=== PATIENT | male | born 1950 | race Caucasian/White ===

== ENCOUNTER → 2017-01-30 | Outpatient (REF) | payer MEDICARE ==
[2017-01-30 17:34] LABS: ALBUMIN 4.1 GM/DL (3.2-5.2); ALBUMIN/GLOBULIN RATIO 1.11 (1.00-1.93); ALKALINE PHOSPHATASE 80 U/L (45-117); ALT/SGPT 53 U/L (12-78); ANION GAP 7 MEQ/L (8-16); AST/SGOT 21 U/L (15-37); BILIRUBIN,TOTAL 0.8 MG/DL (0.2-1.0); BLOOD UREA NITROGEN 17 MG/DL (7-18); CALCIUM LEVEL 9.5 MG/DL (8.8-10.2); CARBON DIOXIDE LEVEL 31 MEQ/L (21-32); CHLORIDE LEVEL 103 MEQ/L (98-107); CHOLESTEROL LEVEL 130 MG/DL (<200); CREATININE FOR GFR 1.08 MG/DL (0.70-1.30); GLOMERULAR FILTRATION RATE > 60.0 (>49); GLUCOSE, FASTING 127 MG/DL (80-110); SODIUM LEVEL 141 MEQ/L (136-145); TOTAL PROTEIN 7.8 GM/DL (6.4-8.2); TRIGLYCERIDES LEVEL 110 MG/DL (<150)
== END ==
LOC: M SFHCCAPE 08:36
PROVIDERS: ATTEND Physician Assistant
DX: I10 Essential (primary) hypertension (principal); R73.01 Impaired fasting glucose; E78.5 Hyperlipidemia, unspecified

== ENCOUNTER → 2017-04-27 | Outpatient (REF) | payer MEDICARE ==
[2017-04-27 18:36] LABS: BASO % 0.4 % (0.0-1.0); EOS # 0.1 K/mm3 (0.0-0.50); LARGE UNSTAINED CELL # 0.1 K/mm3 (0.0-0.4); LARGE UNSTAINED CELL % 1.4 % (0.0-4.0); LYMPH # 1.5 K/mm3 (1.5-4.5); LYMPH % 27.6 % (24.0-44.0); MEAN CORPUSCULAR HEMOGLOBIN 32.1 pg (27.0-33.0); MEAN CORPUSCULAR HGB CONC 35.2 g/dl (32.0-36.5); MEAN CORPUSCULAR VOLUME 91.4 fl (80.0-96.0); MONO # 0.3 K/mm3 (0.0-0.8); MONO % 5.2 % (0.0-5.0); NEUTROPHILS # 3.4 K/mm3 (1.8-7.7); NEUTROPHILS % 63.4 % (36.0-66.0); PLATELET COUNT, AUTOMATED 220 k/mm3 (150-450); WHITE BLOOD COUNT 5.3 K/mm3 (4.0-10.0)
[2017-04-27 19:07] LABS: ALBUMIN 4.1 GM/DL (3.2-5.2); ALBUMIN/GLOBULIN RATIO 1.28 (1.00-1.93); ALKALINE PHOSPHATASE 88 U/L (45-117); ALT/SGPT 33 U/L (12-78); ANION GAP 7 MEQ/L (8-16); AST/SGOT 14 U/L (15-37); BILIRUBIN,TOTAL 0.7 MG/DL (0.2-1.0); BLOOD UREA NITROGEN 18 MG/DL (7-18); CARBON DIOXIDE LEVEL 28 MEQ/L (21-32); CHLORIDE LEVEL 102 MEQ/L (98-107); CREATININE FOR GFR 0.84 MG/DL (0.70-1.30); GLOMERULAR FILTRATION RATE > 60.0 (>49); GLUCOSE, FASTING 107 MG/DL (80-110); POTASSIUM SERUM 4.5 MEQ/L (3.5-5.1); SODIUM LEVEL 137 MEQ/L (136-145); TOTAL PROTEIN 7.3 GM/DL (6.4-8.2)
== END ==
LOC: M SFHCCAPE 08:42
PROVIDERS: ATTEND Physician Assistant
DX: E11.9 Type 2 diabetes mellitus without complications (principal)

== ENCOUNTER → 2017-09-11 | Outpatient (REF) | payer MEDICARE ==
[2017-09-11 19:17] LABS: ALBUMIN/GLOBULIN RATIO 1.03 (1.00-1.93); ALKALINE PHOSPHATASE 76 U/L (45-117); ALT/SGPT 31 U/L (12-78); ANION GAP 5 MEQ/L (8-16); AST/SGOT 12 U/L (7-37); BILIRUBIN,TOTAL 0.6 MG/DL (0.2-1.0); BLOOD UREA NITROGEN 17 MG/DL (7-18); CARBON DIOXIDE LEVEL 32 MEQ/L (21-32); CHLORIDE LEVEL 105 MEQ/L (98-107); CHOLESTEROL LEVEL 128 MG/DL (<200); CREATININE FOR GFR 0.88 MG/DL (0.70-1.30); GLOMERULAR FILTRATION RATE > 60.0 (>49); GLUCOSE, FASTING 103 MG/DL (80-110); POTASSIUM SERUM 4.4 MEQ/L (3.5-5.1); SODIUM LEVEL 142 MEQ/L (136-145); TOTAL PROTEIN 7.9 GM/DL (6.4-8.2); TRIGLYCERIDES LEVEL 93 MG/DL (<150)
== END ==
LOC: M SFHCCAPE 08:39
PROVIDERS: ATTEND Physician Assistant
DX: E78.5 Hyperlipidemia, unspecified (principal); E11.9 Type 2 diabetes mellitus without complications

== ENCOUNTER → 2018-03-12 | Outpatient (REF) | payer MEDICARE ==
[2018-03-12 18:04] LABS: ALBUMIN 3.7 GM/DL (3.2-5.2); ALBUMIN/GLOBULIN RATIO 1.09 (1.00-1.93); ALKALINE PHOSPHATASE 67 U/L (45-117); ALT/SGPT 29 U/L (12-78); ANION GAP 8 MEQ/L (8-16); AST/SGOT 12 U/L (7-37); BILIRUBIN,TOTAL 0.5 MG/DL (0.2-1.0); BLOOD UREA NITROGEN 18 MG/DL (7-18); CALCIUM LEVEL 8.3 MG/DL (8.8-10.2); CARBON DIOXIDE LEVEL 27 MEQ/L (21-32); CHLORIDE LEVEL 108 MEQ/L (98-107); CHOLESTEROL LEVEL 121 MG/DL (<200); CHOLESTEROL RISK RATIO 3.102 (<5); CREATININE FOR GFR 0.82 MG/DL (0.70-1.30); GLOMERULAR FILTRATION RATE > 60.0 (>49); GLUCOSE, FASTING 101 MG/DL (70-100); HDL CHOLESTEROL 39 MG/DL (>40); LDL CHOLESTEROL 65.6 MG/DL (<100); NON-HDL-C 82 MG/DL; POTASSIUM SERUM 4.6 MEQ/L (3.5-5.1); PSA SCREENING 3.58 NG/ML (< 4.0); SODIUM LEVEL 143 MEQ/L (136-145); TOTAL PROTEIN 7.1 GM/DL (6.4-8.2); TRIGLYCERIDES LEVEL 82 MG/DL (<150)
[2018-03-12 18:05] LABS: ESTIMATED AVERAGE GLUCOSE 131 MG/DL (60-110); HEMOGLOBIN A1c 6.2 %
[2018-03-12 18:21] LABS: BASO % 0.4 % (0.0-1.0); EOS # 0.1 10^3/uL (0.0-0.50); EOS % 2.4 % (0.0-3.0); HEMATOCRIT 43.4 % (42.0-52.0); HEMOGLOBIN 14.5 g/dl (13.5-17.5); IMMATURE GRANULOCYTE % 0.6 % (0-3.0); LYMPH # 1.3 10^3/uL (1.5-4.5); LYMPH % 25.7 % (24.0-44.0); MEAN CORPUSCULAR HEMOGLOBIN 30.7 pg (27.0-33.0); MEAN CORPUSCULAR HGB CONC 33.4 g/dl (32.0-36.5); MEAN CORPUSCULAR VOLUME 91.9 fl (80.0-96.0); MONO # 0.4 10^3/uL (0.0-0.8); MONO % 7.2 % (0.0-5.0); NEUTROPHILS # 3.2 10^3/uL (1.8-7.7); NEUTROPHILS % 63.7 % (36.0-66.0); PLATELET COUNT, AUTOMATED 200 10^3/uL (150-450); RED BLOOD COUNT 4.72 10^6/uL (4.30-6.10); RED CELL DISTRIBUTION WIDTH 13.3 % (11.5-14.5)
[2018-03-12 18:35] LABS: MALB URINE SIEMENS 18.9 MG/L; MAU/CREAT RATIO 18.9 MCG/MG (0.0-30.0)
== END ==
LOC: M SFHCCAPE 08:44
DX: E78.5 Hyperlipidemia, unspecified (principal); I10 Essential (primary) hypertension; E11.9 Type 2 diabetes mellitus without complications; Z12.5 Encounter for screening for malignant neoplasm of prostate
CPT/HCPCS: 80053

== ENCOUNTER → 2018-09-10 | Outpatient (REF) | payer MEDICARE ==
[2018-09-10 17:18] LABS: ALBUMIN 3.8 GM/DL (3.2-5.2); ALBUMIN/GLOBULIN RATIO 1.03 (1.00-1.93); ALKALINE PHOSPHATASE 63 U/L (45-117); ALT/SGPT 34 U/L (12-78); ANION GAP 6 MEQ/L (8-16); AST/SGOT 12 U/L (7-37); BILIRUBIN,TOTAL 0.5 MG/DL (0.2-1.0); BLOOD UREA NITROGEN 17 MG/DL (7-18); CALCIUM LEVEL 8.6 MG/DL (8.8-10.2); CARBON DIOXIDE LEVEL 31 MEQ/L (21-32); CHLORIDE LEVEL 104 MEQ/L (98-107); CHOLESTEROL LEVEL 217 MG/DL (<200); CREATININE FOR GFR 0.97 MG/DL (0.70-1.30); GLOMERULAR FILTRATION RATE > 60.0 (>42); GLUCOSE, FASTING 98 MG/DL (70-100); HDL CHOLESTEROL 35 MG/DL (>40); LDL CHOLESTEROL 146 MG/DL (<100); NON-HDL-C 182 MG/DL; POTASSIUM SERUM 4.7 MEQ/L (3.5-5.1); SODIUM LEVEL 141 MEQ/L (136-145); TOTAL PROTEIN 7.5 GM/DL (6.4-8.2); TRIGLYCERIDES LEVEL 178 MG/DL (<150)
[2018-09-10 17:31] LABS: ESTIMATED AVERAGE GLUCOSE 126 MG/DL (60-110)
== END ==
LOC: M SFHCCAPE 08:41
DX: E78.5 Hyperlipidemia, unspecified (principal); E11.9 Type 2 diabetes mellitus without complications
CPT/HCPCS: 80053

== ENCOUNTER → 2019-03-14 | Outpatient (REF) | payer MEDICARE ==
[2019-03-14 19:23] LABS: BASO % 0.5 % (0.0-1.0); EOS # 0.1 10^3/uL (0.0-0.50); EOS % 1.7 % (0.0-3.0); HEMATOCRIT 46.3 % (42.0-52.0); HEMOGLOBIN 15.6 g/dl (13.5-17.5); LYMPH # 1.6 10^3/uL (1.5-4.5); LYMPH % 28.1 % (24.0-44.0); MEAN CORPUSCULAR HEMOGLOBIN 31.7 pg (27.0-33.0); MEAN CORPUSCULAR HGB CONC 33.7 g/dl (32.0-36.5); MEAN CORPUSCULAR VOLUME 94.1 fl (80.0-96.0); MONO # 0.4 10^3/uL (0.0-0.8); MONO % 6.5 % (0.0-5.0); NEUTROPHILS # 3.7 10^3/uL (1.8-7.7); NEUTROPHILS % 62.7 % (36.0-66.0); PLATELET COUNT, AUTOMATED 229 10^3/uL (150-450); RED BLOOD COUNT 4.92 10^6/uL (4.30-6.10); WHITE BLOOD COUNT 5.8 10^3/uL (4.0-10.0)
[2019-03-14 19:33] LABS: ALT/SGPT 40 U/L (12-78); BILIRUBIN,TOTAL 0.5 MG/DL (0.2-1.0); BLOOD UREA NITROGEN 19 MG/DL (7-18); CALCIUM LEVEL 9.1 MG/DL (8.8-10.2); CARBON DIOXIDE LEVEL 25 MEQ/L (21-32); CHLORIDE LEVEL 108 MEQ/L (98-107); CHOLESTEROL LEVEL 134 MG/DL (<200); CHOLESTEROL RISK RATIO 3.722 (<5); CREATININE FOR GFR 0.89 MG/DL (0.70-1.30); GLOMERULAR FILTRATION RATE > 60.0 (>42); GLUCOSE, FASTING 111 MG/DL (70-100); HDL CHOLESTEROL 36 MG/DL (>40); LDL CHOLESTEROL 77 MG/DL (<100); NON-HDL-C 98 MG/DL; POTASSIUM SERUM 4.4 MEQ/L (3.5-5.1); SODIUM LEVEL 141 MEQ/L (136-145); TOTAL PROTEIN 7.8 GM/DL (6.4-8.2); TRIGLYCERIDES LEVEL 106 MG/DL (<150)
[2019-03-14 19:48] LABS: MAU/CREAT RATIO 12.2 MCG/MG (0.0-30.0)
[2019-03-14 21:25] LABS: HEMOGLOBIN A1c 6.4 %
== END ==
LOC: M SFHCCAPE 08:39
PROVIDERS: ATTEND Physician Assistant
DX: I10 Essential (primary) hypertension (principal); E11.9 Type 2 diabetes mellitus without complications; E78.5 Hyperlipidemia, unspecified; Z12.5 Encounter for screening for malignant neoplasm of prostate
CPT/HCPCS: 80053; 80061; 82043; 83036; 84443; 85025; G0103

== ENCOUNTER → 2019-03-19 | Outpatient (CLI) | payer MEDICARE ==
[2019-03-19 12:47] LABS: BASO % 0.7 % (0.0-1.0); EOS # 0.1 10^3/uL (0.0-0.50); EOS % 1.2 % (0.0-3.0); HEMATOCRIT 45.8 % (42.0-52.0); HEMOGLOBIN 15.7 g/dl (13.5-17.5); LYMPH # 1.6 10^3/uL (1.5-4.5); LYMPH % 27.5 % (24.0-44.0); MEAN CORPUSCULAR HEMOGLOBIN 31.8 pg (27.0-33.0); MEAN CORPUSCULAR HGB CONC 34.3 g/dl (32.0-36.5); MEAN CORPUSCULAR VOLUME 92.7 fl (80.0-96.0); MONO # 0.4 10^3/uL (0.0-0.8); MONO % 6.3 % (0.0-5.0); NEUTROPHILS # 3.7 10^3/uL (1.8-7.7); NEUTROPHILS % 63.4 % (36.0-66.0); PLATELET COUNT, AUTOMATED 216 10^3/uL (150-450); RED BLOOD COUNT 4.94 10^6/uL (4.30-6.10); WHITE BLOOD COUNT 5.9 10^3/uL (4.0-10.0)
--- NOTE | 2019-03-19 12:58 | REP ---
Chest two views HISTORY: Shortness of breath Comparison: None The lungs are clear. The heart is normal in size. The pulmonary vasculature is normal in appearance. The bony structure is intact. There is an old fracture of the left clavicle. IMPRESSION: No acute disease. Electronically Signed by Hamlet Razo MD 03/19/2019 12:49 P
[2019-03-19 14:19] LABS: ALT/SGPT 40 U/L (12-78); BILIRUBIN,TOTAL 0.5 MG/DL (0.2-1.0); BLOOD UREA NITROGEN 21 MG/DL (7-18); CALCIUM LEVEL 9.2 MG/DL (8.8-10.2); CARBON DIOXIDE LEVEL 27 MEQ/L (21-32); CHLORIDE LEVEL 106 MEQ/L (98-107); CK-MB VALUE MASS 1.4 NG/ML (<3.6); CPK CREATINE PHOSPHOKINASE 79 U/L (39-308); CREATININE FOR GFR 0.93 MG/DL (0.70-1.30); GLOMERULAR FILTRATION RATE > 60.0 (>42); GLUCOSE, FASTING 129 MG/DL (70-100); MB/CK RELATIVE INDEX 1.77 (< OR =4); POTASSIUM SERUM 4.3 MEQ/L (3.5-5.1); SODIUM LEVEL 140 MEQ/L (136-145); TOTAL PROTEIN 7.6 GM/DL (6.4-8.2); TROPONIN I < 0.02 NG/ML (< 0.10)
== END ==
LOC: M LAB 11:42
PROVIDERS: ATTEND Physician Assistant
DX: R07.89 Other chest pain (principal); R06.02 Shortness of breath

== ENCOUNTER → 2019-05-28 | Outpatient (CLI) | payer MEDICARE | LOC: M SLEEP HO 10:18 | PROVIDERS: ATTEND Internal Medicine Cardiovascular Disease | DX: R06.83 Snoring (principal) ==

== ENCOUNTER → 2020-05-19 | Outpatient (REF) | payer MEDICARE ==
[2020-06-21 10:43] LABS: BASO % 0.3 % (0.0-1.0); EOS # 0.1 10^3/uL (0.0-0.5); EOS % 1.6 % (0.0-3.0); HEMATOCRIT 46.9 % (42.0-52.0); HEMOGLOBIN 15.8 g/dl (13.5-17.5); LYMPH # 1.7 10^3/uL (1.5-5.0); LYMPH % 26.6 % (24.0-44.0); MEAN CORPUSCULAR HEMOGLOBIN 31.3 pg (27.0-33.0); MEAN CORPUSCULAR HGB CONC 33.7 g/dl (32.0-36.5); MEAN CORPUSCULAR VOLUME 92.9 fl (80.0-96.0); MONO # 0.5 10^3/uL (0.0-0.8); MONO % 7.2 % (0.0-5.0); NEUTROPHILS # 4.1 10^3/uL (1.5-8.5); NEUTROPHILS % 63.5 % (36.0-66.0); PLATELET COUNT, AUTOMATED 224 10^3/uL (150-450); RED BLOOD COUNT 5.05 10^6/uL (4.30-6.10); WHITE BLOOD COUNT 6.4 10^3/uL (4.0-10.0)
[2020-07-03 11:40] LABS: ALT/SGPT 68 U/L (12-78); BILIRUBIN,TOTAL 0.6 MG/DL (0.2-1.0); BLOOD UREA NITROGEN 20 MG/DL (7-18); CALCIUM LEVEL 9.5 MG/DL (8.8-10.2); CARBON DIOXIDE LEVEL 29 MEQ/L (21-32); CHLORIDE LEVEL 103 MEQ/L (98-107); CHOLESTEROL LEVEL 156 MG/DL (<200); CHOLESTEROL RISK RATIO 4.105 (<5); CREATININE FOR GFR 1.04 MG/DL (0.70-1.30); GLOMERULAR FILTRATION RATE > 60.0 (>42); GLUCOSE, FASTING 144 MG/DL (70-100); HDL CHOLESTEROL 38 MG/DL (>40); LDL CHOLESTEROL 86 MG/DL (<100); MALB URINE SIEMENS 8.2 MG/L; NON-HDL-C 118 MG/DL; POTASSIUM SERUM 4.3 MEQ/L (3.5-5.1); SODIUM LEVEL 138 MEQ/L (136-145); TOTAL 25(OH) VITAMIN D 24.2 NG/ML (30.0-100.0); TOTAL PROTEIN 7.7 GM/DL (6.4-8.2); TRIGLYCERIDES LEVEL 159 MG/DL (<150)
== END ==
LOC: M LABDRAWC 15:55
PROVIDERS: ATTEND Physician Assistant
DX: Z12.5 Encounter for screening for malignant neoplasm of prostate (principal); I10 Essential (primary) hypertension; E78.5 Hyperlipidemia, unspecified; E11.9 Type 2 diabetes mellitus without complications; Z79.899 Other long term (current) drug therapy
CPT/HCPCS: 36415; 80053; 80061; 82043; 82306; 83036; 84443; 85025; G0103

== ENCOUNTER → 2020-08-14 | Outpatient (REF) | payer MEDICARE ==
[2020-08-14 12:59] LABS: ALT/SGPT 49 U/L (12-78); BILIRUBIN,TOTAL 0.7 MG/DL (0.2-1.0); BLOOD UREA NITROGEN 24 MG/DL (7-18); CALCIUM LEVEL 9.5 MG/DL (8.8-10.2); CARBON DIOXIDE LEVEL 29 MEQ/L (21-32); CHLORIDE LEVEL 104 MEQ/L (98-107); CHOLESTEROL LEVEL 148 MG/DL (<200); GLOMERULAR FILTRATION RATE > 60.0 (>42); GLUCOSE, FASTING 142 MG/DL (70-100); HDL CHOLESTEROL 37 MG/DL (>40); LDL CHOLESTEROL 87 MG/DL (<100); NON-HDL-C 111 MG/DL; POTASSIUM SERUM 4.8 MEQ/L (3.5-5.1); PROSTATIC SPECIFIC AG MONITOR 4.64 NG/ML (< 4.00); SODIUM LEVEL 139 MEQ/L (136-145); TOTAL PROTEIN 7.9 GM/DL (6.4-8.2); TRIGLYCERIDES LEVEL 121 MG/DL (<150)
[2020-08-14 13:11] LABS: HEMOGLOBIN A1c 7.2 %
== END ==
LOC: M SFHCCLAY 08:05
PROVIDERS: ATTEND Physician Assistant
DX: I10 Essential (primary) hypertension (principal); E11.9 Type 2 diabetes mellitus without complications; R97.20 Elevated prostate specific antigen [PSA]

== ENCOUNTER → 2021-02-16 | Outpatient (REF) | payer MEDICARE ==
[2021-02-16 11:42] LABS: BASO % 0.6 % (0.0-1.0); EOS # 0.1 10^3/uL (0.0-0.5); EOS % 1.9 % (0.0-3.0); HEMATOCRIT 47.3 % (42.0-52.0); HEMOGLOBIN 15.4 g/dl (13.5-17.5); LYMPH # 1.9 10^3/uL (1.5-5.0); LYMPH % 28.3 % (24.0-44.0); MEAN CORPUSCULAR HEMOGLOBIN 29.9 pg (27.0-33.0); MEAN CORPUSCULAR HGB CONC 32.6 g/dl (32.0-36.5); MEAN CORPUSCULAR VOLUME 91.8 fl (80.0-96.0); MONO # 0.4 10^3/uL (0.0-0.8); MONO % 6.3 % (2.0-8.0); NEUTROPHILS # 4.1 10^3/uL (1.5-8.5); NEUTROPHILS % 62.2 % (36.0-66.0); PLATELET COUNT, AUTOMATED 246 10^3/uL (150-450); RED BLOOD COUNT 5.15 10^6/uL (4.30-6.10); WHITE BLOOD COUNT 6.7 10^3/uL (4.0-10.0)
[2021-02-16 12:23] LABS: ALBUMIN 3.8 GM/DL (3.2-5.2); ALT/SGPT 32 U/L (12-78); BILIRUBIN,TOTAL 0.7 MG/DL (0.2-1.0); BLOOD UREA NITROGEN 17 MG/DL (7-18); CALCIUM LEVEL 9.6 MG/DL (8.8-10.2); CARBON DIOXIDE LEVEL 30 MEQ/L (21-32); CHLORIDE LEVEL 103 MEQ/L (98-107); CHOLESTEROL LEVEL 146 MG/DL (<200); CHOLESTEROL RISK RATIO 3.842 (<5); CREATININE FOR GFR 0.99 MG/DL (0.70-1.30); GLOMERULAR FILTRATION RATE > 60.0 (>42); GLUCOSE, FASTING 149 MG/DL (70-100); HDL CHOLESTEROL 38 MG/DL (>40); LDL CHOLESTEROL 84 MG/DL (<100); NON-HDL-C 108 MG/DL; POTASSIUM SERUM 4.7 MEQ/L (3.5-5.1); PROSTATIC SPECIFIC AG MONITOR 4.36 NG/ML (< 4.00); SODIUM LEVEL 138 MEQ/L (136-145); TOTAL PROTEIN 7.3 GM/DL (6.4-8.2); TRIGLYCERIDES LEVEL 122 MG/DL (<150)
[2021-02-16 12:47] LABS: HEMOGLOBIN A1c 6.8 %
== END ==
LOC: M SFHCCLAY 08:04
PROVIDERS: ATTEND Physician Assistant
DX: I10 Essential (primary) hypertension (principal); E11.9 Type 2 diabetes mellitus without complications; R97.20 Elevated prostate specific antigen [PSA]

== ENCOUNTER → 2021-04-27 | Outpatient (REF) | payer MEDICARE ==
[2021-04-27 17:35] LABS: BASO % 0.4 % (0.0-1.0); EOS # 0.1 10^3/uL (0.0-0.5); EOS % 0.7 % (0.0-3.0); HEMATOCRIT 45.2 % (42.0-52.0); HEMOGLOBIN 14.8 g/dl (13.5-17.5); LYMPH # 1.4 10^3/uL (1.5-5.0); LYMPH % 14.1 % (24.0-44.0); MEAN CORPUSCULAR HEMOGLOBIN 30.3 pg (27.0-33.0); MEAN CORPUSCULAR HGB CONC 32.7 g/dl (32.0-36.5); MEAN CORPUSCULAR VOLUME 92.4 fl (80.0-96.0); MONO # 0.6 10^3/uL (0.0-0.8); MONO % 6.5 % (2.0-8.0); NEUTROPHILS # 7.5 10^3/uL (1.5-8.5); NEUTROPHILS % 77.8 % (36.0-66.0); PLATELET COUNT, AUTOMATED 264 10^3/uL (150-450); RED BLOOD COUNT 4.89 10^6/uL (4.30-6.10); WHITE BLOOD COUNT 9.6 10^3/uL (4.0-10.0)
[2021-04-27 17:36] LABS: APPEARANCE, URINE CLEAR (CLEAR); BACTERIA, URINE AUTO NEGATIVE (NEGATIVE); BILIRUBIN, URINE AUTO NEGATIVE (NEGATIVE); BLOOD, URINE BLOOD NEGATIVE (NEGATIVE); COLOR, URINE YELLOW (YELLOW); GLUCOSE, URINE (UA) AUTO NEGATIVE (NEGATIVE); KETONE, URINE AUTO NEGATIVE (NEGATIVE); LEUKOCYTE ESTERASE, URINE AUTO NEGATIVE (NEGATIVE); MUCUS, URINE SMALL (NEGATIVE); NITRITE, URINE AUTO NEGATIVE (NEGATIVE); PROTEIN, URINE AUTO NEGATIVE (NEGATIVE); RBC, URINE AUTO 0 /HPF (0-3); SPECIFIC GRAVITY URINE AUTO 1.016 (1.002-1.035); SQUAMOUS EPITHELIAL CELL UR AU 0 /HPF (0-6); UROBILINOGEN, URINE AUTO 0.2 mg/dL (0.0-2.0); WBC, URINE AUTO 0 /HPF (0-3)
[2021-04-27 18:00] LABS: ERYTHROCYTE SEDIMENTATION RATE 32 mm/hr (0-20)
[2021-04-27 18:21] LABS: ALBUMIN 3.6 GM/DL (3.2-5.2); ALT/SGPT 24 U/L (12-78); BILIRUBIN,TOTAL 0.8 MG/DL (0.2-1.0); BLOOD UREA NITROGEN 17 MG/DL (7-18); C REACTIVE PROTEIN QUANTITATIV 9.15 MG/DL (0.00-0.30); CALCIUM LEVEL 9.1 MG/DL (8.8-10.2); CARBON DIOXIDE LEVEL 27 MEQ/L (21-32); CHLORIDE LEVEL 100 MEQ/L (98-107); CPK CREATINE PHOSPHOKINASE 65 U/L (39-308); CREATININE FOR GFR 0.97 MG/DL (0.70-1.30); FOLATE 14.1 NG/ML; GLOMERULAR FILTRATION RATE > 60.0 (>42); GLUCOSE, FASTING 160 MG/DL (70-100); POTASSIUM SERUM 4.9 MEQ/L (3.5-5.1); PROSTATIC SPECIFIC AG MONITOR 6.86 NG/ML (< 4.00); SODIUM LEVEL 135 MEQ/L (136-145); TOTAL 25(OH) VITAMIN D 13.4 NG/ML (30.0-100.0); TOTAL PROTEIN 7.7 GM/DL (6.4-8.2); VITAMIN B12 LEVEL 523 PG/ML
[2021-04-29 18:09] LABS: Lyme Disease IgG/IgM Antibodie <0.91 ISR (0.00-0.90); Lyme Disease IgM Ab Quantitati <0.80 index (0.00-0.79)
== END ==
LOC: M SFHCCAPE 09:11
PROVIDERS: ATTEND Physician Assistant
DX: R53.83 Other fatigue (principal); R97.20 Elevated prostate specific antigen [PSA]

== ENCOUNTER 2021-05-01 18:15 | Inpatient (IN) | payer MEDICARE ==
[~2021-05-01] VITALS: Ht 182.9 cm; Wt 100.0 kg
[2021-05-01] MEDS ORDERED: NS 1,000 ML IV SCH ×2 (19:45→22:30)
[2021-05-01] MEDS ORDERED: ACETAMINOPHEN TAB 650MG DOSE (2X325MG) PO ONE (19:45)
[2021-05-01 20:41] LABS: BASO % 0.3 % (0.0-1.0); EOS # 0.1 10^3/uL (0.0-0.5); EOS % 0.5 % (0.0-3.0); HEMATOCRIT 41.7 % (42.0-52.0); HEMOGLOBIN 14.2 g/dl (13.5-17.5); LYMPH # 1.1 10^3/uL (1.5-5.0); LYMPH % 8.4 % (24.0-44.0); MEAN CORPUSCULAR HEMOGLOBIN 30.3 pg (27.0-33.0); MEAN CORPUSCULAR HGB CONC 34.1 g/dl (32.0-36.5); MEAN CORPUSCULAR VOLUME 89.1 fl (80.0-96.0); MONO % 7.4 % (2.0-8.0); NEUTROPHILS # 10.7 10^3/uL (1.5-8.5); NEUTROPHILS % 82.9 % (36.0-66.0); PLATELET COUNT, AUTOMATED 284 10^3/uL (150-450); RED BLOOD COUNT 4.68 10^6/uL (4.30-6.10); WHITE BLOOD COUNT 12.9 10^3/uL (4.0-10.0)
[2021-05-01] MEDS ORDERED: LISI40TA4 PO (20:47)
[2021-05-01] MEDS ORDERED: CHLO125TA PO (20:47)
[2021-05-01] MEDS ORDERED: TAMS1CAP17 PO (20:47)
[2021-05-01] MEDS ORDERED: AMLO1TAB25 PO (20:47)
[2021-05-01] MEDS ORDERED: ATOR1TAB19 PO (20:47)
--- NOTE | 2021-05-01 20:52 | REPVR ---
PROCEDURE INFORMATION: Exam: CT Head Without Contrast Exam date and time: 05/01/2021 8:04 PM Age: 70 years old Clinical indication: Other: BREWER; Additional info: Headache TECHNIQUE: Imaging protocol: Computed tomography of the head without contrast. Radiation optimization: All CT scans at this facility use at least one of these dose optimization techniques: automated exposure control; mA and/or kV adjustment per patient size (includes targeted exams where dose is matched to clinical indication); or iterative reconstruction. COMPARISON: No relevant prior studies available. FINDINGS: Brain: There is mild diffuse cerebellar atrophy. There is mild diffuse cerebral atrophy. No significant white matter disease demonstrated. Cerebral ventricles: No ventriculomegaly. Paranasal sinuses: Visualized sinuses are unremarkable. No fluid levels. Mastoid air cells: Visualized mastoid air cells are well aerated. Vasculature: Atherosclerotic calcifications are demonstrated in the intracranial carotid arteries bilaterally as well as in the vertebral basilar system. Bones/joints: Unremarkable. No acute fracture. Soft tissues: Unremarkable. IMPRESSION: 1. There is mild diffuse cerebellar atrophy. 2. There is mild diffuse cerebral atrophy. No significant white matter disease demonstrated. 3. No acute findings. Electronically signed by: Ben Baez On 05/01/2021 20:51:45 PM
--- NOTE | 2021-05-01 20:53 | REPVR ---
PROCEDURE INFORMATION: Exam: XR Chest Exam date and time: 05/01/2021 8:04 PM Age: 70 years old Clinical indication: Other: SOB cough TECHNIQUE: Imaging protocol: XR of the chest. Views: 2 views. COMPARISON: CR Chest, 2 view PA, Lat 03/19/2019 12:36 PM FINDINGS: Lungs: Unremarkable. No consolidation. Pleural spaces: Unremarkable. No pleural effusion. No pneumothorax. Heart/Mediastinum: Unremarkable. No cardiomegaly. Bones/joints: Unremarkable. IMPRESSION: No acute findings. Electronically signed by: Ben Baez On 05/01/2021 20:52:23 PM
[2021-05-01 21:07] LABS: APPEARANCE, URINE CLEAR (CLEAR); BACTERIA, URINE AUTO NEGATIVE (NEGATIVE); BILIRUBIN, URINE AUTO NEGATIVE (NEGATIVE); BLOOD, URINE BLOOD NEGATIVE (NEGATIVE); COLOR, URINE YELLOW (YELLOW); GLUCOSE, URINE (UA) AUTO 1+ mg/dL (NEGATIVE); KETONE, URINE AUTO NEGATIVE (NEGATIVE); LEUKOCYTE ESTERASE, URINE AUTO NEGATIVE (NEGATIVE); MUCUS, URINE SMALL (NEGATIVE); NITRITE, URINE AUTO NEGATIVE (NEGATIVE); PROTEIN, URINE AUTO NEGATIVE (NEGATIVE); RBC, URINE AUTO 2 /HPF (0-3); SPECIFIC GRAVITY URINE AUTO 1.026 (1.002-1.035); SQUAMOUS EPITHELIAL CELL UR AU 0 /HPF (0-6); WBC, URINE AUTO 1 /HPF (0-3)
[2021-05-01 21:09] LABS: ALT/SGPT 25 U/L (12-78); AMYLASE 25 U/L (25-115); BILIRUBIN,DIRECT 0.2 MG/DL (0.0-0.2); BILIRUBIN,TOTAL 0.7 MG/DL (0.2-1.0); BLOOD UREA NITROGEN 22 MG/DL (7-18); CALCIUM LEVEL 9.2 MG/DL (8.8-10.2); CARBON DIOXIDE LEVEL 27 MEQ/L (21-32); CHLORIDE LEVEL 102 MEQ/L (98-107); CK-MB VALUE MASS < 1.0 NG/ML (<3.6); CPK CREATINE PHOSPHOKINASE 62 U/L (39-308); CREATININE FOR GFR 1.09 MG/DL (0.70-1.30); GLOMERULAR FILTRATION RATE > 60.0 (>42); GLUCOSE, FASTING 162 MG/DL (70-100); MB/CK RELATIVE INDEX 1.61 (< OR =4); SODIUM LEVEL 137 MEQ/L (136-145); TOTAL PROTEIN 7.3 GM/DL (6.4-8.2); TROPONIN I < 0.02 NG/ML (< 0.10)
[2021-05-01] MEDS ORDERED: NS 1,000 ML IV ONE (21:30)
--- NOTE | 2021-05-01 21:39 | ECGEPIP ---
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
[2021-05-01] MEDS ORDERED: DOXY100T PO (21:44)
[2021-05-01 21:49] VITALS: BP 127/70
[2021-05-01] MEDS ORDERED: ENOXAPARIN 40MG/0.4ML SYRINGE (J1650 PER 10MG) SC ONE (22:00)
[2021-05-01 22:08] LABS: LDH LACTATE DEHYDROGENASE 131 U/L (87-241)
[2021-05-01 22:12] LABS: MONO SCRN NEGATIVE (NEGATIVE)
[2021-05-01 23:49] VITALS: BP 127/70
[2021-05-02] MEDS: ATORVASTATIN 10 MG TAB PO SCH ×2 (00:44→21:16)
[2021-05-02] MEDS: lisinopriL 40 MG TAB PO SCH ×2 (00:44→21:16)
[2021-05-02] MEDS: DOXYCYCLINE HYCLATE 100 MG in D5W MINI-BAG PLUS 100 ML IV SCH ×3 (00:45→22:16)
[2021-05-02] MEDS: ACETAMINOPHEN TAB 650MG DOSE (2X325MG) PO PRN ×3 (02:16→16:03)
[2021-05-02] MEDS: cefTRIAXone SOD 2 GM in D5W MINI-BAG PLUS 50 ML IV SCH ×2 (02:16→21:16)
--- NOTE | 2021-05-02 03:54 | HPEPDOC ---
[facility] Medical History & Physical Date of Admission May 01, 2021 Date of Service: May 01, 2021 History and Physical CHIEF COMPLAINT: Fever right scalp pain and redness HISTORY OF PRESENT ILLNESS: 70-year-old male who was in his usual state of health until 5 days ago when he noticed a red erythematous painful and pruritic circular rash on his right scalp while working in the yard patient went to the [facility] and was diagnosed with possible Lyme disease and despite negative Lyme screen was started on doxycycline 100 twice daily patient has had recurrent fevers 102 for the past 2 days despite completing 3 days of doxycycline he also complains of chills malaise bilateral hip and knee pains and a dry cough for the past 2 days . He denied nausea vomiting abdominal pain and complains of pain in the right s calp without neck pain or rigidity. In the emergency room patient was found to be septic with white count of 12.9 tachycardic with heart rate of 107 bpm CRP of 27.3 and temperature 100.5. He had normal lactic acid chest x-ray respiratory panel and urinalysis. CT of the head was negative. Hospitalist was asked to admit the patient for fever of unknown origin most likely a tickborne illness and possible gram-negative bacilli infection continued on doxycycline and empiric ceftriaxone. Blood cu ltures ordered. PAST MEDICAL HISTORY: Hypertension hypercholesterolemia erectile dysfunction type 2 diabetes aortic valve stenosis echo 03/[address] [facility] elevated PSA refuses urology consultation despite recommendation PAST SURGICAL HISTORY: Laser spine surgery for herniated imploded disc in lower spine 07/27/1993 SOCIAL HISTORY: FAMILY HISTORY: Father of unknown malignancy mother with unknown malignancy ALLERGIES: Please see below. REVIEW OF SYSTEMS: 10 point review of systems negative aside from positive findings in HPI HOME MEDICATIONS: Please see below. PHYSICAL EXAMINATION: VITAL SIGNS: See below GENERAL APPEARANCE: Awake alert oriented to person place and time no distress no cyanosis or pallor no icterus or jaundice speaks in full sentences HEENT: Pupils equally round reactive to light accommodation extract muscles in tact normocephalic atraumatic moist mucous membranes neck supple negative meningismus negative Brudzinski and Kernig sign no JVD stridor or carotid bruit no cervical lymphadenopathy no thyromegaly CARDIOVASCULAR: S1-S2 regular rate rhythm systolic ejection murmur at the apex with radiation to the carotid 3 out of 6 nondisplaced point of maximal impulse no carotid bruit LUNGS: Air entry is equal bilaterally no kyphosis no scoliosis no adventitious breath sounds inspiratory expiratory ratio normal clear to auscultation bilaterally ABDOMEN: Positive bowel sounds x4 quadrants soft nontender nondistended no rebound guarding no hepatosplenomegaly no abdominal bruit noted EXTREMITIES: No cyanosis clubbing LABORATORY DATA: See below. IMAGING: See below MICROBIOLOGY: Please see below. ASSESSMENT: 70-year-old male who was doing housework noted a rash on his scalp seen at [facility] started on doxycycline despite having a negative Lyme screen presents with recurrent fevers with in creased inflammatory markers. Fever of unknown origin -Most likely a tickborne illness and may benefit from continuation of doxycycline 100 mg twice daily -Due to increased prevalence of ehrlichia and co-infection with anaplasmosis, check PCR for Ehrlichia. -Empiric gram-negative coverage with ceftriaxone but if blood cultures are negative may discontinue -Despite having neck pain patient does not have meningeal signs with negative Brudzinski and Kernig sign and no significant meningismus to warrant a lumbar puncture. -Negative UA respiratory panel and chest x-ray. Hypertension -Resumed home meds -Monitor renal function while on lisinopril Dyslipidemia -Check lipid profile and resume home medications erectile dysfunction -Chronic type 2 diabetes -Consistent carbohydrate diet check A1c sliding-scale -Resume home meds aortic valve stenosis echo 03/[address] [facility] -Hemodynamically stable avoid hypovolemia, hypotension, or dehydration as it can precipitate CHF syncope and acute coronary syndrome elevated PSA -refuses urology consultation despite recommendation Diet: Consistent carbohydrate 2 g sodium DVT prophylaxis: Lovenox CODE STATUS: Full code Vital Signs Vital Signs Date Time Temp Pulse Resp B/P (MAP) Pulse Ox O2 Delivery O2 Flow Rate FiO2 05/01/21 22:07 97.6 05/01/21 20:47 Room Air 05/01/21 20:47 05/01/21 18:16 107 18 98 Laboratory Data Labs 24H Laboratory Tests 2 05/01/21 20:26: Immature Granulocyte % (Auto) 0.5, Neutrophils (%) (Auto) 82.9H, Lymphocytes (%) (Auto) 8.4L, Monocytes (%) (Auto) 7.4, Eosinophils (%) (Auto) 0.5, Basophils (%) (Auto) 0.3, Neutrophils # (Auto) 10.7H, Lymphocytes # (Auto) 1.1L, Monocytes # (Auto) 1.0H, Eosinophils # (Auto) 0.1, Basophils # (Auto) 0.0, Nucleated Red Blood Cells % (auto) 0.0, Anion Gap 8, Glomerular Filtration Rate > 60.0, Lactic Acid Level 1.4, Calcium Level 9.2, Total Bilirubin 0.7, Direct Bilirubin 0.2, Aspartate Amino Transf (AST/SGOT) 9, Alanine Aminotransferase (ALT/SGPT) 25, Alkaline Phosphatase 81, Lactate Dehydrogenase 131, Total Creatine Kinase 62, Creatine Kinase MB < 1.0, Creatine Kinase MB Relative Index 1.61, Troponin I < 0.02, C-Reactive Protein, Quantitative 27.30H, Total Protein 7.3, Albumin 3.0L, Albumin/Globulin Ratio 0.7, Amylase Level 25, Monoscreen NEGATIVE 05/01/21 20:41: Urine Color YELLOW, Urine Appearance CLEAR, Urine pH 5.0, Urine Specific [place] 1.026, Urine Protein NEGATIVE, Urine Glucose (Auto)(UA) 1+H, Urine Ketones (Auto) NEGATIVE, Urine Blood NEGATIVE, Urine Nitrite NEGATIVE, Urine Bilirubin NEGATIVE, Urine Urobilinogen 2.0H, Urine Leukocyte Esterase (Auto) NEGATIVE, Uri ne WBC (Auto) 1, Urine RBC (Auto) 2, Urine Hyaline Casts (Auto) 0, Urine Bacteria (Auto) NEGATIVE, Urine Squamous Epithelial Cells 0, Urine Mucus (Auto) SMALL, Urine Sperm (Auto) CBC/BMP Laboratory Tests 05/01/21 20:26 Microbiology Microbiology 05/01/21 Blood Culture, Received Pending 05/01/21 Urine Culture, Received Pending 05/01/21 Respiratory Virus Panel (PCR) ([facility]) - Final, Complete 05/01/21 Blood Culture, Received Pending Home Medications Scheduled Amlodipine Besylate (Amlodipine Besylate) 10 Mg Tablet, 10 MG PO DAILY Atorvastatin Calcium (Atorvastatin Calcium) 10 Mg Tablet, 10 MG PO QHS Chlorthalidone (Chlorthalidone) 25 Mg Tablet, 12.5 MG PO DAILY Doxycycline Hyclate (Doxycycline Hyclate) 100 Mg Tablet, 100 MG PO BID started 04/27/21 x 10 days Lisinopril (Lisinopril) 40 Mg Tablet, 40 MG PO QHS Tamsulosin Hcl (Tamsulosin HCl) 0.4 Mg Capsule, 0.4 MG PO DAILY Allergies Coded Allergies: No Known Allergies (Unverified , 05/01/21) A-FIB/CHADSVASC A-FIB History Current/History of A-Fib/PAF?: No Current PO Anticoag Therapy: No Age/Risk Factor Scoring CHADSVASC: CHADSVASC Response (Comments) Value Age Risk Factor Age 65-74 years old 1 Gender Risk Factor Male 0 Hx of CHF No 0 Hx of HTN Yes 1 Hx of Stroke/TIA/or VTE No 0 Hx of Diabetes No 0 Hx of Vascular Disease No 0 Total 2 Treatment Treatment ordered: NONE DARCIE RIOJAS MD May 01, 2021 22:28
[2021-05-02] MEDS ORDERED: KETOROLAC 30 MG/ML 1ML VIAL IV ONE (04:00)
[2021-05-02 06:00] VITALS: BP 138/67
[2021-05-02 06:07] LABS: BASO % 0.3 % (0.0-1.0); EOS # 0.1 10^3/uL (0.0-0.5); EOS % 0.8 % (0.0-3.0); HEMATOCRIT 35.8 % (42.0-52.0); HEMOGLOBIN 12.2 g/dl (13.5-17.5); LYMPH # 1.1 10^3/uL (1.5-5.0); LYMPH % 9.6 % (24.0-44.0); MEAN CORPUSCULAR HEMOGLOBIN 30.2 pg (27.0-33.0); MEAN CORPUSCULAR HGB CONC 34.1 g/dl (32.0-36.5); MEAN CORPUSCULAR VOLUME 88.6 fl (80.0-96.0); MONO # 0.8 10^3/uL (0.0-0.8); MONO % 6.8 % (2.0-8.0); NEUTROPHILS # 9.7 10^3/uL (1.5-8.5); NEUTROPHILS % 81.7 % (36.0-66.0); PLATELET COUNT, AUTOMATED 263 10^3/uL (150-450); RED BLOOD COUNT 4.04 10^6/uL (4.30-6.10); WHITE BLOOD COUNT 11.9 10^3/uL (4.0-10.0)
[2021-05-02 06:20] LABS: HEMOGLOBIN A1c 7.5 %
[2021-05-02 06:26] LABS: ERYTHROCYTE SEDIMENTATION RATE 56 mm/hr (0-20)
[2021-05-02 06:37] LABS: BLOOD UREA NITROGEN 20 MG/DL (7-18); CALCIUM LEVEL 8.2 MG/DL (8.8-10.2); CARBON DIOXIDE LEVEL 28 MEQ/L (21-32); CHLORIDE LEVEL 105 MEQ/L (98-107); CHOLESTEROL LEVEL 105 MG/DL (<200); CHOLESTEROL RISK RATIO 4.375 (<5); CREATININE FOR GFR 0.92 MG/DL (0.70-1.30); GLOMERULAR FILTRATION RATE > 60.0 (>42); GLUCOSE, FASTING 172 MG/DL (70-100); HDL CHOLESTEROL 24 MG/DL (>40); LDL CHOLESTEROL 59 MG/DL (<100); NON-HDL-C 81 MG/DL; POTASSIUM SERUM 3.8 MEQ/L (3.5-5.1); SODIUM LEVEL 138 MEQ/L (136-145); TRIGLYCERIDES LEVEL 108 MG/DL (<150)
[2021-05-02] MEDS: LACTOBACILLUS ACIDOPHILUS CAP (BACID) PO SCH ×4 (08:38→21:16)
[2021-05-02] MEDS: TAMSULOSIN 0.4 MG CAP PO SCH (08:42)
[2021-05-02] MEDS: BACITRACIN OINTMENT 30GM TUBE TOP SCH ×2 (08:48→21:16)
[2021-05-02] MEDS ORDERED: KETOROLAC 30 MG/ML 1ML VIAL IV PRN (10:00)
[2021-05-02] MEDS: CHLORTHALIDONE 12.5MG PER 1/2 TABLET PO SCH (11:45)
--- NOTE | 2021-05-02 14:10 | IPNPDOC ---
Text Note Date of Service The patient was seen on 05/02/21. NOTE SUBJECTIVE: -No acute distress, Tmax 100.5 OBJECTIVE: VITALS: see below GENERAL APPEARANCE: NAD HEENT: NCAT, anicteric, no pallor, EOMI, MMM, PERRLA NECK: No palpable adenopathy or JVD CARDIOVASCULAR: RRR, has a systolic ejection murmur with radiation to the carotid LUNGS: CTAB, breathing comfortably on room air ABDOMEN: Normoactive bowel sounds in all 4 quadrants, soft NTND, no noted hepatosplenomegaly EXTREMITIES: No cyanosis clubbing LABORATORY DATA: Reviewed WBC 11.9 Hgb 12.2 platelets 263 na 138 K 3.8 Cr 0.92 ESR 56 CRP 24.9 hgb a1c 7.5 IMAGING: See below MICROBIOLOGY: Please see below. ASSESSMENT: 70-year-old M who was doing housework noted a rash on his scalp seen at [facility] started on doxycycline despite having a negative Lyme screen presents with recurrent fevers with elevated inflammatory markers. Fever of unknown origin -c/f tickborne illness and therefore will continue doxycycline 100 mg twice daily -f/u tickborne panel studies -Also continue empiric ceftriaxone -f/u BCx -Despite having neck pain patient did not have meningeal signs with negative Brudzinski and Kernig sign and no significant meningismus to warrant a lumbar pu ncture. -Negative UA respiratory panel and chest x-ray. Hypertension -Resumed home meds -Monitor renal function while on lisinopril Dyslipidemia -Check lipid profile and resume home medications erectile dysfunction -Chronic type 2 diabetes -Consistent carbohydrate diet -a1c was 7.5 and he has mild fasting hyperglycemia. Will discuss therapies vs. diet control aortic valve stenosis -echo 03/[address] [facility] Diet: Consistent carbohydrate 2 g sodium DVT prophylaxis: Lovenox CODE STATUS: Full code VS,Fishbone, I+O VS, Fishbone, I+O Laboratory Tests 05/01/21 20:26 05/02/21 05:22 Vital Signs Date Time Temp Pulse Resp B/P (MAP) Pulse Ox O2 Delivery O2 Flow Rate FiO2 05/02/21 08:42 78 152/82 05/02/21 06:00 97.5 18 96 Room Air I&O- Last 24 Hours up to 6 AM 7/25/21 06:00 Intake Total 1700 ml Output Total 450 ml Balance 1250 ml DESTINEE SEPULVEDA MD May 02, 2021 09:56
[2021-05-02] MEDS ORDERED: CALCIUM CARBONATE 500 MG CHEW U/D PO PRN (20:15)
[2021-05-02] MEDS: ENOXAPARIN 40MG/0.4ML SYRINGE (J1650 PER 10MG) SC SCH (21:15)
[2021-05-02] MEDS: KETOROLAC 30 MG/ML 1ML VIAL IV PRN (21:16)
[2021-05-02 22:00] VITALS: BP 162/78
[2021-05-03] MEDS: KETOROLAC 30 MG/ML 1ML VIAL IV PRN ×4 (05:49→23:07)
[2021-05-03 06:00] VITALS: BP 118/60
[2021-05-03 06:37] LABS: BASO % 0.2 % (0.0-1.0); EOS # 0.2 10^3/uL (0.0-0.5); EOS % 1.3 % (0.0-3.0); HEMATOCRIT 36.1 % (42.0-52.0); HEMOGLOBIN 12.1 g/dl (13.5-17.5); LYMPH # 0.8 10^3/uL (1.5-5.0); LYMPH % 6.6 % (24.0-44.0); MEAN CORPUSCULAR HEMOGLOBIN 29.9 pg (27.0-33.0); MEAN CORPUSCULAR HGB CONC 33.5 g/dl (32.0-36.5); MEAN CORPUSCULAR VOLUME 89.1 fl (80.0-96.0); MONO # 0.9 10^3/uL (0.0-0.8); MONO % 6.9 % (2.0-8.0); NEUTROPHILS # 10.8 10^3/uL (1.5-8.5); NEUTROPHILS % 84.2 % (36.0-66.0); PLATELET COUNT, AUTOMATED 271 10^3/uL (150-450); RED BLOOD COUNT 4.05 10^6/uL (4.30-6.10); WHITE BLOOD COUNT 12.8 10^3/uL (4.0-10.0)
[2021-05-03 06:58] LABS: ERYTHROCYTE SEDIMENTATION RATE 65 mm/hr (0-20)
[2021-05-03 07:10] LABS: BLOOD UREA NITROGEN 23 MG/DL (7-18); CALCIUM LEVEL 8.6 MG/DL (8.8-10.2); CARBON DIOXIDE LEVEL 27 MEQ/L (21-32); CHLORIDE LEVEL 103 MEQ/L (98-107); GLOMERULAR FILTRATION RATE > 60.0 (>42); GLUCOSE, FASTING 165 MG/DL (70-100); POTASSIUM SERUM 3.9 MEQ/L (3.5-5.1); SODIUM LEVEL 137 MEQ/L (136-145)
[2021-05-03] MEDS: CHLORTHALIDONE 12.5MG PER 1/2 TABLET PO SCH (08:22)
[2021-05-03] MEDS: TAMSULOSIN 0.4 MG CAP PO SCH (08:22)
[2021-05-03] MEDS: BACITRACIN OINTMENT 30GM TUBE TOP SCH (08:22)
[2021-05-03] MEDS: LACTOBACILLUS ACIDOPHILUS CAP (BACID) PO SCH ×4 (08:22→21:55)
--- NOTE | 2021-05-03 11:41 | REP ---
INDICATION: fever. COMPARISON: X-ray chest 05/01/2021 TECHNIQUE: Scanning through the chest with coronal and sagittal reconstructions provided FINDINGS: The lung bernal are well inflated. There is some minor fibrotic changes posteriorly in the mid to lower lung zones but no pleural effusion, pleural thickening, calcified pleural plaques, acute infiltrate, pulmonary nodule or parenchymal mass. Heart is not enlarged. Some calcifications at the aortic valve plane arch and descending aorta but no aneurysm. No pathologic sized mediastinal, hilar, axillary or supraclavicular adenopathy mass. Exam somewhat less sensitive for hilar nodes in the absence of IV contrast but no gross abnormality. There are small subcentimeter nodes in all these areas, normal. Bony thorax shows no acute compression deformity or destructive lesion there are marginal osteophytes. Sternum and manubrium intact. Medial clavicles, visualized scapulae, humeral heads and ribs all without acute finding. There is old healed and remodeled fracture of the midshaft of the left clavicle. IMPRESSION: 1. Negative CT chest for acute cardiopulmonary changes, adenopathy, acute bony finding or other significant abnormality. <Electronically signed by Manas Saeed > 05/03/21 1130
--- NOTE | 2021-05-03 11:57 | REP ---
INDICATION: fever. COMPARISON: None. TECHNIQUE: Noncontrast imaging through the abdomen and pelvis with both none coronal and sagittal reconstructions. FINDINGS: CT abdomen: Lung bases without acute finding. There is no definite hiatal hernia stomach filled with retained food but not abnormally distended. The liver, spleen, gallbladder and pancreas without any acute finding. Adrenal glands are normal interpolar cysts anteriorly and laterally in the right kidney the largest 2.5 cm. There is an anterior interpolar cyst left kidney at 2.3 cm. Few other smaller cysts in the kidneys but no hydronephrosis, hydroureter or definite solid mass. A 9 x 6 mm a stone in the lower pole a pyramid is seen in nonobstructive on the left side. There is a 6 mm stone in a pyramid in the right base also nonobstructing. No perinephric edema the ureters show no dilatation or stone. Stool and gas are seen about the colon without signs of colitis or diverticulitis. Appendix is seen and normal. Small bowel loops are without dilatation. The right mid upper abdomen on images 79-85 shows an ill-defined mesenteric edema suggesting mesenteric panniculitis. There is no colonic loop nearby no nor small bowel wall thickening in this region. No pathologic sized adenopathy in the mesentery, periaortic or other retroperitoneal areas. Lung window review of all CT slices shows no perforation or free air. There is 1 zone of the subcutaneous air in the right lateral flank that likely is from a subcutaneous injection and seen on image 88 only seen when reviewed in lung window settings. No facet arthropathy in lower lumbar spine with a right hemilaminectomy at L5-S1 and grade 1 anterolisthesis of L5 on S1 with disc space narrowing and vacuum phenomenon. There is slight narrowing at L4-5 disc space and a couple of mm of retrolisthesis of L4 on L5. The other vertebral body heights of the disc space heights are intact. No compression deformity. No destructive lesion. Visualized lower ribs intact. CT pelvis: The sacrum, SI joints, pelvis and hips show minor degenerative changes without destructive lesion or fracture, age appropriate. Heavy vascular calcifications iliac and femoral arteries without aneurysm. The distal left colon, sigmoid and rectum are without any acute inflammatory changes in the pericolonic fat. No obstruction or mass in small bowel loops in the deep pelvis. Appendix and cecum unremarkable. No pelvic adenopathy or free fluid. Distal ureters without dilatation or stone. The bladder shows no mass, wall thickening or stone. There is an urachal remnant seen extending up towards the umbilicus. No abnormal dilatation or mass in this urachal remnant, an anatomic variant. No pelvic ascites or pelvic mass. No ventral or inguinal hernia nor inguinal adenopathy. IMPRESSION: 1. Ill-defined zone of mesenteric edema or infiltrate in the right mid upper abdomen near small bowel loops and remote from any colon. This suggests mesenteric panniculitis there is no thickening small bowel loops, diverticulosis, diverticulitis, abscess, perforation or free air. No ascites. The colon and appendix unremarkable. 2. Atherosclerotic calcifications aorta and iliac vessels without aneurysm. No abdominal or pelvic pathologic sized lymphadenopathy. 3. Bilateral nonobstructive renal calculi in the lower pole. These are in pyramids and measuring about 6 mm on the right, 9 mm on the left. Bilateral cysts noted, few in number. The largest is 2.3 cm on the left and 2.5 on the right. 4. Upper abdominal solid organs and gallbladder otherwise unremarkable. 5. Postoperative changes at L5-S1 with grade 1 anterolisthesis of L5 on S1 with right hemilaminectomy. No acute bony finding. <Electronically signed by Manas Saeed > 05/03/21 [id number]
[2021-05-03] MEDS: SENNA 8.6 MG TAB (SENOKOT) PO SCH ×2 (11:59→21:55)
[2021-05-03] MEDS: DOXYCYCLINE HYCLATE 100 MG in D5W MINI-BAG PLUS 100 ML IV SCH ×2 (12:00→23:47)
--- NOTE | 2021-05-03 12:14 | IPNPDOC ---
Text Note Date of Service The patient was seen on 05/03/21. NOTE SUBJECTIVE: -No acute distress, continues to have low grade fevers but is nonfocal with generalized achy symptoms OBJECTIVE: VITALS: see below GENERAL APPEARANCE: NAD HEENT: NCAT, anicteric, no pallor, EOMI, MMM, PERRLA NECK: No palpable adenopathy or JVD CARDIOVASCULAR: RRR, has a systolic ejection murmur with radiation to the carotid LUNGS: CTAB, breathing comfortably on room air ABDOMEN: Normoactive bowel sounds in all 4 quadrants, soft NTND, no noted hepatosplenomegaly EXTREMITIES: No cyanosis clubbing LABORATORY DATA: Reviewed WBC 12.8 ESR 65 CRP 29.2 IMAGING: See below MICROBIOLOGY: Please see below. ASSESSMENT: 70-year-old M who was doing yardwork and noted a rash on his scalp seen at [facility] started on doxycycline despite having a negative Lyme screen presents with persistent episodic fevers with elevated inflammatory markers. Fever of unknown origin -There is c/f tickborne illness and therefore will continue doxycycline 100 mg twice daily -f/u tickborne panel studies, lyme screen negative -Also continue empiric ceftriaxone for now -f/u BCx -Despite having neck pain patient did not have meningeal signs with negative Brudzinski and Kernig sign and no significant meningismus to warrant a lumbar puncture. -Negative UA respiratory panel and chest x-ray. -order CT chest and A/P without contrast -urine legionella -monospot negative -ID consult Hypertension -Resumed home meds -Monitor renal function while on lisinopril Dyslipidemia -Check lipid profile and resume home medications erectile dysfunction -Chronic type 2 diabetes -Consistent carbohydrate diet -a1c was 7.5 and he has mild fasting hyperglycemia. Will discuss therapies vs. diet control aortic valve stenosis -echo 03/[address] [facility] Diet: Consistent carbohydrate 2 g sodium DVT prophylaxis: Lovenox CODE STATUS: Full code VS,Fishbone, I+O VS, Fishbone, I+O Laboratory Tests 05/03/21 05:23 Vital Signs Date Time Temp Pulse Resp B/P (MAP) Pulse Ox O2 Delivery O2 Flow Rate FiO2 05/03/21 08:22 134/78 05/03/21 06:35 97.6 05/03/21 06:00 82 20 93 Room Air I&O- Last 24 Hours up to 6 AM 05/03/21 06:00 Intake Total 720 ml Output Total 0 ml Balance 720 ml DESTINEE SEPULVEDA MD May 03, 2021 10:20
[2021-05-03 14:00] VITALS: BP 134/61
[2021-05-03] MEDS: ACETAMINOPHEN TAB 650MG DOSE (2X325MG) PO PRN (15:35)
[2021-05-03] MEDS: BENZONATATE 100 MG CAP PO SCH ×3 (17:41→22:02)
[2021-05-03] MEDS: lisinopriL 40 MG TAB PO SCH (21:55)
[2021-05-03] MEDS: ATORVASTATIN 10 MG TAB PO SCH (21:55)
[2021-05-03] MEDS: cefTRIAXone SOD 2 GM in D5W MINI-BAG PLUS 50 ML IV SCH (21:56)
[2021-05-03] MEDS: ENOXAPARIN 40MG/0.4ML SYRINGE (J1650 PER 10MG) SC SCH (21:56)
[2021-05-03 22:00] VITALS: BP 148/62
[2021-05-04] MEDS: KETOROLAC 30 MG/ML 1ML VIAL IV PRN ×3 (05:23→17:47)
[2021-05-04 05:30] LABS: BASO % 0.2 % (0.0-1.0); EOS # 0.3 10^3/uL (0.0-0.5); EOS % 1.9 % (0.0-3.0); HEMATOCRIT 34.2 % (42.0-52.0); HEMOGLOBIN 11.7 g/dl (13.5-17.5); LYMPH # 0.8 10^3/uL (1.5-5.0); MEAN CORPUSCULAR HEMOGLOBIN 30.4 pg (27.0-33.0); MEAN CORPUSCULAR HGB CONC 34.2 g/dl (32.0-36.5); MEAN CORPUSCULAR VOLUME 88.8 fl (80.0-96.0); MONO % 7.4 % (2.0-8.0); NEUTROPHILS # 10.9 10^3/uL (1.5-8.5); NEUTROPHILS % 83.6 % (36.0-66.0); PLATELET COUNT, AUTOMATED 276 10^3/uL (150-450); RED BLOOD COUNT 3.85 10^6/uL (4.30-6.10)
[2021-05-04 05:50] LABS: ERYTHROCYTE SEDIMENTATION RATE 65 mm/hr (0-20)
[2021-05-04 06:00] VITALS: BP 143/63
[2021-05-04 06:07] LABS: BLOOD UREA NITROGEN 24 MG/DL (7-18); CALCIUM LEVEL 8.3 MG/DL (8.8-10.2); CARBON DIOXIDE LEVEL 25 MEQ/L (21-32); CHLORIDE LEVEL 104 MEQ/L (98-107); CREATININE FOR GFR 0.94 MG/DL (0.70-1.30); GLOMERULAR FILTRATION RATE > 60.0 (>42); GLUCOSE, FASTING 181 MG/DL (70-100); POTASSIUM SERUM 3.7 MEQ/L (3.5-5.1); SODIUM LEVEL 137 MEQ/L (136-145)
[2021-05-04] MEDS: SENNA 8.6 MG TAB (SENOKOT) PO SCH ×2 (09:08→22:07)
[2021-05-04] MEDS: BENZONATATE 100 MG CAP PO SCH ×3 (09:08→22:07)
[2021-05-04] MEDS: TAMSULOSIN 0.4 MG CAP PO SCH (09:08)
[2021-05-04] MEDS: LACTOBACILLUS ACIDOPHILUS CAP (BACID) PO SCH ×4 (09:08→22:07)
[2021-05-04] MEDS: CHLORTHALIDONE 12.5MG PER 1/2 TABLET PO SCH (09:09)
[2021-05-04] MEDS ORDERED: FUROSEMIDE 20MG/2ML VIAL (J1940) IV ONE (11:00)
[2021-05-04] MEDS: DOXYCYCLINE HYCLATE 100 MG in D5W MINI-BAG PLUS 100 ML IV SCH ×2 (11:47→23:58)
[2021-05-04 14:00] VITALS: BP 145/63
[2021-05-04 15:08] LABS: Lyme Disease IgG/IgM Antibodie <0.91 ISR (0.00-0.90); Lyme Disease IgM Ab Quantitati <0.80 index (0.00-0.79)
--- NOTE | 2021-05-04 16:51 | IPNPDOC ---
Subjective Date Seen The patient was seen on 05/04/21. Subjective Chief Complaint/HPI Patient complains of feeling very fatigued and weak. Objective Physical Examination General Exam: Positive: Alert, Cooperative, No Acute Distress Eye Exam: Positive: PERRLA, Conjunctiva & lids normal, EOMI; Negative: Sclera icteric Neck Exam: Positive: Supple; Negative: JVD, thyromegaly Chest Exam: Positive: Normal air movement, Other (Few bilateral basal crackles) Heart Exam: Positive: Rate Normal, Regular Rhythm, Normal S1, Normal S2, Murmurs (Systolic murmur); Negative: Rubs Abdomen Exam: Positive: Normal bowel sounds, Soft; Negative: Tenderness, Hepatospenomegaly Extremity Exam: Negative: Clubbing, Cyanosis, Edema Psych Exam: Positive: Memory Intact, Oriented x 3 Assessment /Plan Assessment 70-year-old M with past medical history of diabetes, hypertension, depression, aortic stenosis who was doing yardwork and noted a rash on his scalp seen at [facility] started on doxycycline despite having a negative Lyme screen presents with persistent episodic fevers with elevated inflammatory markers, joint pains Fever of unknown origin with joint pains There is a possibility that this is some kind of tickborne illness. Lyme screen is negative monospot negative Will f/u tickborne panel studies continue empiric ceftriaxone and doxycycline Negative UA respiratory panel and chest x-ray. CT chest and A/P without contrast negative Blood cultures negative till date urine legionella pending ID consult appreciated If infectious tests come back negative will order for immunological work-up Hypertension Resumed home meds Monitor renal function while on lisinopril Dyslipidemia Check lipid profile and resume home medications erectile dysfunction Chronic type 2 diabetes Consistent carbohydrate diet -a1c was 7.5 and he has mild fasting hyperglycemia. Will discuss therapies vs. diet control Aortic valve stenosis -echo 03/[address] [facility] Plan/VTE VTE Prophylaxis Ordered?: Yes VS, I&O, 24H, Fishbone Vital Signs/I&O Vital Signs Date Time Temp Pulse Resp B/P (MAP) Pulse Ox O2 Delivery O2 Flow Rate FiO2 05/04/21 14:00 98.2 80 17 145/63 (90) 94 Room Air I&O- Last 24 Hours up to 6 AM 05/04/21 06:00 Intake Total 2000 ml Output Total 1850 ml Balance 150 ml Laboratory Data 24H LABS Laboratory Tests 2 05/03/21 18:30: 05/04/21 05:10: Immature Granulocyte % (Auto) 0.9, Neutrophils (%) (Auto) 83.6H, Lymphocytes (%) (Auto) 6.0L, Monocytes (%) (Auto) 7.4, Eosinophils (%) (Auto) 1.9, Basophils (%) (Auto) 0.2, Neutrophils # (Auto) 10.9H, Lymphocytes # (Auto) 0.8L, Monocytes # (Auto) 1.0H, Eosinophils # (Auto) 0.3, Basophils # (Auto) 0.0, Nucleated Red Blood Cells % (auto) 0.0, Erythrocyte Sedimentation Rate 65H, Anion Gap 8, Glomerular Filtration Rate > 60.0, Calcium Level 8.3L, C-Reactive Protein, Quantitative 31.10H CBC/BMP Laboratory Tests 05/04/21 05:10 Microbiology Microbiology 05/01/21 Blood Culture - Preliminary, Resulted No Growth after 48 hours. All Specime... 05/01/21 Urine Culture - Final, Complete 05/01/21 Respiratory Virus Panel (PCR) ([facility]) - Final, Complete 05/01/21 Blood Culture - Preliminary, Resulted No Growth after 48 hours. All Specime... JAYNA KIMBLE MD May 04, 2021 16:51
[2021-05-04 22:00] VITALS: BP 145/63
[2021-05-04] MEDS: predniSONE 20 MG TAB PO SCH (22:07)
[2021-05-04] MEDS: ATORVASTATIN 10 MG TAB PO SCH (22:07)
[2021-05-04] MEDS: lisinopriL 40 MG TAB PO SCH (22:07)
[2021-05-04] MEDS: ENOXAPARIN 40MG/0.4ML SYRINGE (J1650 PER 10MG) SC SCH (22:08)
[2021-05-05 06:00] VITALS: BP 114/58
[2021-05-05 06:14] LABS: BASO % 0.2 % (0.0-1.0); EOS % 0.2 % (0.0-3.0); HEMATOCRIT 34.2 % (42.0-52.0); HEMOGLOBIN 11.5 g/dl (13.5-17.5); LYMPH # 0.7 10^3/uL (1.5-5.0); LYMPH % 5.4 % (24.0-44.0); MEAN CORPUSCULAR HEMOGLOBIN 30.3 pg (27.0-33.0); MEAN CORPUSCULAR HGB CONC 33.6 g/dl (32.0-36.5); MEAN CORPUSCULAR VOLUME 90.2 fl (80.0-96.0); MONO # 0.7 10^3/uL (0.0-0.8); MONO % 5.4 % (2.0-8.0); NEUTROPHILS % 87.4 % (36.0-66.0); PLATELET COUNT, AUTOMATED 291 10^3/uL (150-450); RED BLOOD COUNT 3.79 10^6/uL (4.30-6.10); WHITE BLOOD COUNT 12.6 10^3/uL (4.0-10.0)
[2021-05-05 06:37] LABS: ERYTHROCYTE SEDIMENTATION RATE 65 mm/hr (0-20)
[2021-05-05 06:39] LABS: MONO REFLEX EBV COMP NEGATIVE (NEGATIVE)
[2021-05-05 06:41] LABS: BLOOD UREA NITROGEN 27 MG/DL (7-18); CALCIUM LEVEL 8.8 MG/DL (8.8-10.2); CARBON DIOXIDE LEVEL 27 MEQ/L (21-32); CHLORIDE LEVEL 103 MEQ/L (98-107); CREATININE FOR GFR 0.94 MG/DL (0.70-1.30); GLOMERULAR FILTRATION RATE > 60.0 (>42); GLUCOSE, FASTING 232 MG/DL (70-100); POTASSIUM SERUM 3.7 MEQ/L (3.5-5.1); SODIUM LEVEL 137 MEQ/L (136-145)
--- NOTE | 2021-05-05 08:11 | CR ---
CONSULTATION DATE: 05/03/2021 REASON FOR CONSULTATION: I was asked to consult by hospitalist for evaluation of fever, joint pains after an insect bite to the right scalp with a rash. HISTORY OF PRESENT ILLNESS: Mr. Albrecht is a 70-year-old gentleman who is a very healthy, usually walks about 5 miles a day, lives in [place]. He was working in his yard about five days prior to admission when he developed a red, erythematous, painful rash on his scalp on the right side. He was seen by his primary care provider, was treated for suspected erythema migrans and Lyme disease. He was given doxycycline 100 mg twice a day which he took for about three days before admission without improvement of his symptoms. His fever was up to 102 associated with chills and malaise. He then developed bilateral hip pain and knee pain for generalized weakness and a dry cough. The patient denied having nausea, vomiting, abdominal pain, urinary symptoms which were hematuria. He stated that the pain in his right scalp was mostly a nerve feeling with hyperesthesia especially when the area was touched. The redness had somewhat subsided. In the emergency room, the patient was noted to be septic with tachycardia, pulse of 107, elevated CRP, white count and a fever. He had a normal lactic acid. CT of the chest and abdomen were negative. The patient was started on Ceftriaxone and doxycycline for possible Lyme disease and tick-borne diseases but he has remained febrile. PAST MEDICAL HISTORY: 1. Hypertension. 2. Hyperlipidemia. 3. Erectile dysfunction. 4. Type 2 diabetes. 5. Aortic valve stenosis on an echo done 03/2020. 6. Elevated PSA. The patient refused urology consultation. 7. New constipation for about one month. The patient has never had a colonoscopy. PAST SURGICAL HISTORY: Laser spine surgery for herniated disc, lumbar spine, 1992. SOCIAL HISTORY: He is . He lives with his . He walks five miles a day. [place] and he is retired from [employer]. PHYSICAL EXAMINATION: General: He is a pleasant, sick looking gentleman in no acute distress. Vital Signs: Temperature is 100.2, pulse 80, respirations 16, blood pressure 134/61, O2 sat 96% on room air. Heart: Normal S1, S2, systolic ejection murmurs, 2/6 best heard at the left upper sternal border. Lungs: Clear. No wheezes, rales or rhonchi. Abdomen: Soft, nontender, no hepatosplenomegaly. Back: No CVA or lumbosacral tenderness. Extremities: No clubbing, cyanosis or edema. Generalized weakness with hip flexion and extension, symmetrical. Skin: Upper and lower extremities with no rash. Scalp on the right side where he recalls an insect bite, there is mild erythema and hyperesthesia about 10 cm. Neurologic exam: Normal. Joints: With no active synovitis, no effusion. LABORATORY DATA: White count 12.8, hemoglobin 12.1, hematocrit 36.1, platelets 271, 84% neutrophils, 6% lymphocytes, 6% monocytes. ESR 56 to 65. Sodium 137, potassium 3.9, chloride 103, bicarb 27, BUN 23, creatinine 0.9, glucose 165, calcium 8.6. Hemoglobin A1c 7.5. CRP 29.9. Triglycerides 108, total cholesterol 105. Urinalysis: 1 white cell, 2 red cells. Lyme serology negative. Anaplasma and Ehrlichia are pending. Blood cultures, two sets were negative. Respiratory panel was negative. Urine culture was negative. IMAGING STUDIES: Chest x-ray: Clear. Head CT, CT of abdomen and pelvis and chest CT all were pretty benign with no evidence of infection, no acute cardiopulmonary finding or bony abnormalities. CT of abdomen shows some mesenteric panniculitis and mild mesenteric edema. Bilateral nonobstructive renal calculi in lower poles of the kidneys. Postoperative changes, L5-S1 with spondylolisthesis. IMPRESSION: This is a 70-year-old gentleman who developed a rash on the scalp after an insect bite, he is not sure what kind of bite it was following which he developed fever, chills, a rash on the scalp with myalgias and arthritis especially in the hips and knees with generalized weakness. He has not improved after receiving IV ceftriaxone and doxycycline and has received so far at least six days of IV doxycycline with two negative Lyme serology makes the diagnosis of Lyme disease very unlikely. Anaplasma could still be in the differential but I would have expected to defervesce also after five days of doxycycline. Babesia could be also carried by the same tick although he does not have anemia or thrombocytopenia which makes it less likely. Other insects that could give you hyperesthesia with headache and sometimes complications of fever later could be black fly bites and that is not usually infectious in nature and the patient may benefit from some steroids. Other possible etiologies and not related to tick bites or insect bites would be EBV reactivation, infectious mono reactivation or autoimmune diseases. PLAN: Obtain peripheral smear to rule out Anaplasma and Babesia, looking for morulae and rings and [place] crosses. Continue Rocephin and doxycycline until further results available. Obtain urine Legionnaire antigen. 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 JAZMÍN, rheumatoid factor was ordered as well. Consider use of prednisone if bacterial workup is negative. The fact that his procalcitonin was normal also makes a bacterial etiology less likely.
--- NOTE | 2021-05-05 08:29 | CR ---
CONSULTATION DATE: 05/04/2021 The patient was seen at 6 p.m. in followup visit. He continues complaining of sweats and fever although he has not had any documented fever. He feels a little stronger, is able to get out of bed on his own. He has been constipated and just took a laxative. PHYSICAL EXAMINATION: General: Healthy looking gentleman in no acute distress, slightly weak. Scalp with mild erythema and hyperesthesia on the right side. Heart: Normal S1, S2, no murmurs, rubs or gallops. Lungs: Clear. No wheezes, rales or rhonchi. Abdomen: Soft, mildly tender in the lower quadrants. Extremities: No clubbing, cyanosis or edema, no rashes. LABORATORY DATA: Labs from 05/04: White count 13, hemoglobin 11.7, hematocrit 34.2, platelets 276, ESR 65, unchanged. Sodium 137, potassium 3.7, chloride 104, bicarb 25, BUN 24, creatinine 0.9, glucose 181, calcium 8.3. CRP increased to 31.1. Anaplasma, Ehrlichia, PCR is still pending. Babesia PCR is pending. West Nile virus, IgG and IgM are pending. Urine and Legionnaire antigen are pending. IMPRESSION: 1. Fever of unknown origin. So far, workup has been negative. The patient's symptoms developed after an insect bite. This is unlikely to be Lyme disease or Anaplasma. The patient should have responded by now to doxycycline. I would discontinue IV Rocephin as there is no evidence of bacterial infection with typical pathogens with continued doxycycline until results of Anaplasma available. 2. Arthralgias, rule out autoimmune disease. JAZMÍN, rheumatoid factor have been ordered. I will add prednisone 20 mg p.o. b.i.d. because his only relief is coming from Toradol as an anti-inflammatory and this probably would help him as well. 3. Hypertension, controlled. PLAN: DC IV ceftriaxone, add prednisone 20 mg p.o. b.i.d. The case was then discussed with Dr. Thomas who agrees with the plan. Also add to his problem list: History of aortic stenosis. His murmur seems quite loud with a grade 2/6 systolic ejection murmur and therefore I will obtain an echocardiogram to rule out culture negative endocarditis.
[2021-05-05 08:45] VITALS: BP 114/58
[2021-05-05] MEDS: SENNA 8.6 MG TAB (SENOKOT) PO SCH (08:45)
[2021-05-05] MEDS: predniSONE 20 MG TAB PO SCH (08:45)
[2021-05-05] MEDS: TAMSULOSIN 0.4 MG CAP PO SCH (08:45)
[2021-05-05] MEDS: CHLORTHALIDONE 12.5MG PER 1/2 TABLET PO SCH (08:45)
[2021-05-05] MEDS: LACTOBACILLUS ACIDOPHILUS CAP (BACID) PO SCH (08:45)
[2021-05-05] MEDS: BENZONATATE 100 MG CAP PO SCH (08:45)
[2021-05-05] MEDS ORDERED: PRED20TA PO (10:47)
[2021-05-05] MEDS ORDERED: RISATAB3 PO (10:47)
[2021-05-06 14:12] LABS: EBV VIRAL CAPSID AG IgG >600.0 U/mL (0.0-17.9); EBV VIRAL CAPSID AG IgM <36.0 U/mL (0.0-35.9)
[2021-05-06 15:17] LABS: WEST NILE VIRUS ANTIBODY IgG Negative (Negative); WEST NILE VIRUS ANTIBODY IgM Negative (Negative)
--- NOTE | 2021-05-06 17:48 | ECHO ---
ECHOCARDIOGRAM DATE OF PROCEDURE: 05/05/2021 Age: 70 Gender: Male Height: 72 inches Weight: 228 pounds Body surface area: 2.22 2 Inpatient. [facility], room 4203. REFERRING PHYSICIAN: Dr. Berry Chu INDICATION: Fever of unknown origin. MEASUREMENTS: 2D Measurements: RV - 4.2 cm LV - 5.0 cm Septum 1.4 cm Posterior wall 1.4 cm Aortic root 3.4 cm LA - 4.6 cm LVEF 75% Doppler Measurements: AV - 3.34 m2 LVOT - 1.14 m2 Mean AV gradient 27 mmHg Dimensionless index 0.37 MV-E 105, A 103, E/A ratio 1 Early mitral deceleration time 201 msec E prime medial 8.1 A prime medial 11 E prime lateral 9.7 Average E/E prime ratio 11.8/PCWP 16.5 mmHg PV - 0.93 m/s Pulmonary artery acceleration time 124 msec PASP 26 mmHg IVC - 2.2 cm COMMENTS: Normal sinus rhythm without intraventricular conduction disturbance. M-mode and 2-dimensional echocardiography was performed with pulse, continuous wave, color flow, and tissue Doppler studies. Moderate symmetrical left ventricular hypertrophy with hyperkinetic wall motion. Moderately dilated left atrium with grade 1 LV diastolic dysfunction with current estimated mean left atrial pressure upper limits of normal. Right heart chamber sizes were upper limits of normal with normal wall motion and currently normal estimated pulmonary arterial pressure. IVC size upper limits of normal with adequate respiratory collapse against a significantly elevated central venous pressure. Normal aortic dimensions. Severely calcified aortic valve, suspected to have three cusps, with reduced cusp separation an Doppler evidence of moderate aortic stenosis and very mild aortic insufficiency. Mitral annular calcification of a mild degree with normal-appearing mitral leaflets and leaflet excursion with no posterior systolic buckling. Mild mitral insufficiency. Normal-appearing tricuspid valve with no more than trace insufficiency. Could not rule out a sessile vegetation on the aortic valve but no obvious pedunculated mass was visualized. Miniscule anterior and small posterior pericardial effusions without evidence of cardiac chamber compression or respiratory variation to Doppler flow signals to suggest tamponade. A preliminary report of this study was relayed to Dr. Chu 05/06/2021. The patient has had blood work drawn, including cultures, which are pending at this time. The results are pending at this time.
[2021-05-06 21:08] LABS: ANA (HEP2) Positive (.)
[2021-05-07 20:08] LABS: CMV QUANT DNA PCR, URINE Negative copies/mL (Negative)
--- NOTE | 2021-05-08 14:27 | DS.PDOC ---
Discharge Summary General Date of Admission May 01, 2021 at 21:28 Date of Discharge 05/05/21 Discharge Summary PROCEDURES PERFORMED DURING STAY: DISCHARGE DIAGNOSES: FUO no etiology found yet. SECONDARY DIAGNOSIS: Diabetes, Hypertension, Depression, Aortic stenosis, Erectile Dysfunction. COMPLICATIONS/CHIEF COMPLAINT: Fever Of Unknown Origin. HOSPITAL COURSE: 70-year-old M with past medical history of diabetes, hypertension, depression, aortic stenosis who was doing yardwork and noted a rash on his scalp seen at [facility] started on doxycycline despite having a negative Lyme screen presents with persistent episodic fevers with elevated inflammatory markers, joint pains Fever of unknown origin with joint pains JAZMÍN positive, Could be immunological Lyme screen is negative, monospot negative, anaplasma neg, urine legionella negative, E.chafeensis pcr negative Negative UA respiratory panel and chest x-ray. CT chest and A/P without contrast negative Blood cultures are final negative Echo ? sessile vegetation on the Aortic valve Hypertension Resumed home meds Monitor renal function while on lisinopril Dyslipidemia Check lipid profile and resume home medications Erectile dysfunction Chronic type 2 diabetes Consistent carbohydrate diet a1c was 7.5. Moderate Aortic valve stenosis follows with [facility] DISCHARGE MEDICATIONS: Please see below. ALLERGIES: Please see below. PHYSICAL EXAMINATION ON DISCHARGE: VITAL SIGNS: Please see below. General Exam: Positive: Alert, Cooperative, No Acute Distress Eye Exam: Positive: PERRLA, Conjunctiva & lids normal, EOMI; Negative: Sclera icteric Neck Exam: Positive: Supple; Negative: JVD, thyromegaly Chest Exam: Positive: Normal air movement, Other (Few bilateral basal crackles) Heart Exam: Positive: Rate Normal, Regular Rhythm, Normal S1, Normal S2, Murmurs (Systolic murmur); Negative: Rubs Abdomen Exam: Positive: Normal bowel sounds, Soft; Negative: Tenderness, Hepatosplenomegaly Extremity Exam: Negative: Clubbing, Cyanosis, Edema Psych Exam: Positive: Memory Intact, Oriented x 3 LABORATORY DATA: Please see below. ECHO: Severely calcified aortic valve, suspected to have three cusps, with reduced cusp separation an Doppler evidence of moderate aortic stenosis and very mild aortic insufficiency. Could not rule out a sessile vegetation on the aortic valve but no obvious pedunculated mass was visualized. Miniscule anterior and small posterior pericardial effusions without evidence of cardiac chamber compression or respiratory variation to Doppler flow signals to suggest tamponade. ACTIVITY: [As tolerated]. DIET: As tolerated DISPOSITION: 01 Home, Self-Care. DISCHARGE INSTRUCTIONS: Follow up with PMD in 1 week ITEMS TO FOLLOWUP ON ON OUTPATIENT: Follow up with DISCHARGE CONDITION: [Stable]. TIME SPENT ON DISCHARGE: 35 minutes. Vital Signs/I&Os Vital Signs Date Time Temp Pulse Resp B/P (MAP) Pulse Ox O2 Delivery O2 Flow Rate FiO2 05/05/21 08:45 67 114/58 05/05/21 06:00 97.5 15 95 Room Air Microbiology Microbiology 05/01/21 Blood Culture - Final, Complete NO GROWTH AFTER 5 DAYS 05/01/21 Urine Culture - Final, Complete 05/01/21 Respiratory Virus Panel (PCR) ([facility]) - Final, Complete 05/01/21 Blood Culture - Final, Complete NO GROWTH AFTER 5 DAYS Discharge Medications Scheduled Amlodipine Besylate (Amlodipine Besylate) 10 Mg Tablet, 10 MG PO DAILY, (Reported) Atorvastatin Calcium (Atorvastatin Calcium) 10 Mg Tablet, 10 MG PO QHS, (Reported) Chlorthalidone (Chlorthalidone) 25 Mg Tablet, 12.5 MG PO DAILY, (Reported) Doxycycline Hyclate (Doxycycline Hyclate) 100 Mg Tablet, 100 MG PO BID, (Reported) started 04/27/21 x 10 days L.acidoph/L.bulg/B.bif/S.therm (Cesia-Bid Caplet) 1 Each Tablet, 1 EA PO WM Lisinopril (Lisinopril) 40 Mg Tablet, 40 MG PO QHS, (Reported) Prednisone (Prednisone) 20 Mg Tablet, 20 MG PO BID Tamsulosin Hcl (Tamsulosin HCl) 0.4 Mg Capsule, 0.4 MG PO DAILY, (Reported) Allergies Coded Allergies: No Known Allergies (Unverified , 05/01/21) JAYNA KIMBLE MD May 08, 2021 14:27
== END 2021-05-05 12:16 | disposition home or self-care (01) | DRG 864 ==
LOC: M ED 18:15 → M ED INP 21:28 → M MSPAV 05-02
PROVIDERS: ADMIT General Practice; ATTEND Internal Medicine Nephrology
DX: R50.9 Fever, unspecified (principal); I10 Essential (primary) hypertension; E78.5 Hyperlipidemia, unspecified; N52.9 Male erectile dysfunction, unspecified; E11.9 Type 2 diabetes mellitus without complications; I35.0 Nonrheumatic aortic (valve) stenosis; R97.20 Elevated prostate specific antigen [PSA]; K59.00 Constipation, unspecified; M25.551 Pain in right hip; M25.552 Pain in left hip; M25.561 Pain in right knee; M25.562 Pain in left knee; Z79.899 Other long term (current) drug therapy

== ENCOUNTER → 2021-05-10 | Outpatient (REF) | payer MEDICARE ==
[~2021-05-10] MED LIST: AMLO1TAB25 PO; ATOR1TAB19 PO; BACITAB PO; CHLO125TA PO; DOXY100T PO; LISI40TA4 PO; METF-839 PO; PRED20TA PO; RISATAB3 PO; TAMS1CAP17 PO; TELM1TAB35 PO
[2021-05-10 17:43] LABS: BASO # 0.1 10^3/uL (0.0-0.2); BASO % 0.2 % (0.0-1.0); EOS # 0.1 10^3/uL (0.0-0.5); EOS % 0.2 % (0.0-3.0); HEMATOCRIT 37.1 % (42.0-52.0); HEMOGLOBIN 12.3 g/dl (13.5-17.5); LYMPH # 1.4 10^3/uL (1.5-5.0); LYMPH % 6.4 % (24.0-44.0); MEAN CORPUSCULAR HEMOGLOBIN 30.1 pg (27.0-33.0); MEAN CORPUSCULAR HGB CONC 33.2 g/dl (32.0-36.5); MEAN CORPUSCULAR VOLUME 90.9 fl (80.0-96.0); MONO % 4.3 % (2.0-8.0); NEUTROPHILS % 84.9 % (36.0-66.0); PLATELET COUNT, AUTOMATED 571 10^3/uL (150-450); RED BLOOD COUNT 4.08 10^6/uL (4.30-6.10); WHITE BLOOD COUNT 22.4 10^3/uL (4.0-10.0)
[2021-05-10 18:09] LABS: ALBUMIN 2.2 GM/DL (3.2-5.2); ALT/SGPT 82 U/L (12-78); BILIRUBIN,TOTAL 0.5 MG/DL (0.2-1.0); BLOOD UREA NITROGEN 23 MG/DL (7-18); CALCIUM LEVEL 9.2 MG/DL (8.8-10.2); CARBON DIOXIDE LEVEL 29 MEQ/L (21-32); CHLORIDE LEVEL 98 MEQ/L (98-107); CREATININE FOR GFR 0.81 MG/DL (0.70-1.30); GLOMERULAR FILTRATION RATE > 60.0 (>42); GLUCOSE, FASTING 271 MG/DL (70-100); LDH LACTATE DEHYDROGENASE 147 U/L (87-241); POTASSIUM SERUM 4.5 MEQ/L (3.5-5.1); SODIUM LEVEL 135 MEQ/L (136-145); TOTAL PROTEIN 6.4 GM/DL (6.4-8.2)
[2021-05-10 18:52] LABS: HEPATITIS C VIRUS ABY INDEX 0.2 INDEX (<0.8)
[2021-05-10 18:53] LABS: HIV 1&2 SCREEN CENTAUR NEGATIVE (NEGATIVE)
[2021-05-11 12:42] LABS: ALBUMIN 2.53 GM/DL (3.29-5.55); ALBUMIN % 39.5 % (55.8-66.1); ALPHA-1-GLOBULIN % 11.3 % (2.9-4.9); ALPHA-1-GLOBULINS 0.72 GM/DL (0.17-0.41); ALPHA-2-GLOBULINS 1.23 GM/DL (0.42-0.99); ALPHA-2-GLOBULINS % 19.2 % (7.1-11.8); BETA-1-GLOBULINS % 6.3 % (4.7-7.2); BETA-2-GLOBULINS 0.42 GM/DL (0.19-0.55); BETA-2-GLOBULINS % 6.6 % (3.2-6.5); GAMMA GLOBULIN % 17.1 % (11.1-18.8); GAMMA GLOBULINS 1.09 GM/DL (0.65-1.58)
== END ==
LOC: M SFHCCAPE 07:58
PROVIDERS: ATTEND Physician Assistant
DX: R50.9 Fever, unspecified (principal); R97.20 Elevated prostate specific antigen [PSA]

== ENCOUNTER 2021-05-12 09:30 | Inpatient (IN) | payer MEDICARE ==
[~2021-05-12] VITALS: Ht 182.9 cm; Wt 96.9 kg
[~2021-05-12 09:30] MED LIST changes: -BACITAB PO; -METF-839 PO; -TELM1TAB35 PO
[2021-05-12] MEDS ORDERED: TELM1TAB35 PO (09:54)
--- NOTE | 2021-05-12 10:25 | REP ---
INDICATION: SEPSIS/SHOCK. COMPARISON: PA and lateral chest dated 05/01/2021. TECHNIQUE: Portable AP chest with the patient sitting. FINDINGS: The lung bernal are clear. Cardiac size is normal. The lyudmila, mediastinum and skeletal structures are unremarkable. IMPRESSION: Essentially negative portable chest There is no interval change. <Electronically signed by Rex Shaffer > 05/12/21 1021
[2021-05-12 10:52] LABS: HEMATOCRIT 40.6 % (42.0-52.0); HEMOGLOBIN 13.7 g/dl (13.5-17.5); MEAN CORPUSCULAR HEMOGLOBIN 30.3 pg (27.0-33.0); MEAN CORPUSCULAR HGB CONC 33.7 g/dl (32.0-36.5); MEAN CORPUSCULAR VOLUME 89.8 fl (80.0-96.0); PLATELET COUNT, AUTOMATED 582 10^3/uL (150-450); RED BLOOD COUNT 4.52 10^6/uL (4.30-6.10); WHITE BLOOD COUNT 22.5 10^3/uL (4.0-10.0)
[2021-05-12 11:13] LABS: INR 1.17; PARTIAL THROMBOPLASTIN TIME 28.9 SECONDS (25.9-37.0); PROTHROMBIN TIME 15.3 SECONDS (12.7-14.5)
[2021-05-12 11:18] LABS: EOSINOPHILS 1 % (0-3); LYMPHOCYTES 7 % (16-44); MONOCYTES 6 % (0-5); NEUTROPHILS 85 % (28-66); PLATELET ESTIMATE INCREASED (NORMAL)
[2021-05-12 11:32] LABS: ALBUMIN 2.1 GM/DL (3.2-5.2); ALT/SGPT 71 U/L (12-78); AMYLASE 42 U/L (25-115); BILIRUBIN,DIRECT 0.3 MG/DL (0.0-0.2); BILIRUBIN,TOTAL 0.7 MG/DL (0.2-1.0); BLOOD UREA NITROGEN 21 MG/DL (7-18); CALCIUM LEVEL 8.8 MG/DL (8.8-10.2); CARBON DIOXIDE LEVEL 29 MEQ/L (21-32); CHLORIDE LEVEL 97 MEQ/L (98-107); CK-MB VALUE MASS < 1.0 NG/ML (<3.6); CPK CREATINE PHOSPHOKINASE 18 U/L (39-308); CREATININE FOR GFR 0.87 MG/DL (0.70-1.30); GLOMERULAR FILTRATION RATE > 60.0 (>42); GLUCOSE, FASTING 235 MG/DL (70-100); MB/CK RELATIVE INDEX 5.56 (< OR =4); POTASSIUM SERUM 4.5 MEQ/L (3.5-5.1); SODIUM LEVEL 133 MEQ/L (136-145); TOTAL PROTEIN 6.7 GM/DL (6.4-8.2); TROPONIN I < 0.02 NG/ML (< 0.10)
[2021-05-12 11:54] LABS: ERYTHROCYTE SEDIMENTATION RATE 61 mm/hr (0-20)
[2021-05-12] MEDS ORDERED: BACITAB PO (12:05)
[2021-05-12] MEDS ORDERED: HOME MED LIST COMPLETE! XX SCH (12:10)
--- NOTE | 2021-05-12 12:37 | REP ---
INDICATION: FEVER NECK PAIN. COMPARISON: 05/01/2021. TECHNIQUE: CT brain performed in the axial plane. Coronal reconstruction images are performed. FINDINGS: The ventricles are normal in size and position. There is mild atrophy. There is no midline shift or mass effect. Martinez-white differentiation is well maintained. There is no acute intracranial hemorrhage or extra-axial fluid collection. Bone window examination is unremarkable. The visualized mastoid air cells and paranasal sinuses are clear. There are mild vascular calcifications in the carotid siphons. IMPRESSION: Negative noncontrast CT brain. <Electronically signed by Rex Martinez > 05/12/21 2070
[2021-05-12] MEDS ORDERED: KETOROLAC 30 MG/ML 1ML VIAL IV ONE (13:15)
[2021-05-12] MEDS ORDERED: ACETAMINOPHEN TAB 650MG DOSE (2X325MG) PO PRN (13:20)
[2021-05-12] MEDS ORDERED: GLUCOSE 4GM CHEW TABLET PO PRN (13:25)
[2021-05-12] MEDS ORDERED: DEXTROSE 50% 50 ML SYRINGE IV PRN (13:25)
[2021-05-12] MEDS ORDERED: GLUCAGON INJ 1MG VIAL SC PRN (13:25)
--- NOTE | 2021-05-12 13:48 | HPEPDOC ---
[facility] Medical History & Physical Date of Admission May 12, 2021 Date of Service: May 12, 2021 History and Physical CHIEF COMPLAINT: recurrent fevers 101 at home after completing doxycycline and prednisone HISTORY OF PRESENT ILLNESS: 70-year-old male recently discharged 05/05/21 for FUO treated empirically with iv ceftriaxone and doxycycline, and discharged home after ID Dr. Chu recommendation to complete doxycycline at home. Patient was given prednisone for myalgias/joint pains. Previous Workup included negative blood cx, negative Ct chest, abdomen, pelvis, negative lyme, CMV, West nile, Anaplasma, Babesia, Ehrlichia, HIV. Despite EBV nuclear ag positive, negative EBV IgM. He c/o on and off tmax 100-0-101 at home since completing doxycycline two days ago with "burning pain in my thighs," and large joint pains w/o effusion, or joint erythema in b/l hips, knees which are worse than ankles, wrists, and shoulder joints. He c/o headache in April, but none this time. He c/o jaw pain w/o ear pain/discharge/ tooth or mandibular pain/dysphagia/odynophagia/sore throat/photophobia, neck rigidity, neck pain. 2 D echo 05/06/21: cannot rule out sessile vegetation in aortic valve. In the ER, pt was found to be septic with wbc 22, hypothermic 95.8, lactic acid 1.5, and persistently elevated esr 61 from 65, and crp 28.2 from 28.9. JAZMÍN (+) -hep2. Hospitalist was asked to admit the patient for FUO. PAST MEDICAL HISTORY: Hypertension hypercholesterolemia erectile dysfunction type 2 diabetes aortic valve stenosis echo 03/[address] [facility] elevated PSA refuses urology consultation despite recommendation PAST SURGICAL HISTORY: Laser spine surgery for herniated imploded disc in lower spine 07/27/1993 SOCIAL HISTORY: denies recreational drug use, etoh, cig use. lives w FAMILY HISTORY: Father of unknown malignancy mother with unknown malignancy ALLERGIES: Please see below. REVIEW OF SYSTEMS: 10 point review of systems negative aside from positive findings in HPI HOME MEDICATIONS: Please see below. PHYSICAL EXAMINATION: VITAL SIGNS: See below GENERAL APPEARANCE: no distress. Awake alert oriented to person place and time no distress no cyanosis or pallor no icterus or jaundice speaks in full sentences HEENT: Pupils equally round reactive to light accommodation extract muscles intact normocephalic atraumatic moist mucous membranes neck supple negative meningismus negative Brudzinski and Kernig sign no JVD stridor or carotid bruit no cervical lymphadenopathy no thyromegaly. no TMJ tenderness. no temporal tenderness CARDIOVASCULAR: S1-S2 regular rate rhythm systolic ejection murmur at the apex with radiation to the carotid 3 out of 6 nondisplaced point of maximal impulse no carotid bruit LUNGS: Air entry is equal bilaterally no kyphosis no scoliosis no adventitious breath sounds inspiratory expiratory ratio normal clear to auscultation bilaterally ABDOMEN: Positive bowel sounds x4 quadrants soft nontender nondistended no rebound guarding no hepatosplenomegaly no abdominal bruit noted. no cva tenderness EXTREMITIES: No cyanosis clubbing. no joint effusions or erythema noted on joints of b/l shoulder, elbow, knees, hips. no pitting edema b/l LE. LABORATORY DATA: See below. IMAGING: See below MICROBIOLOGY: Please see below. ASSESSMENT: 70-year-old male recently discharged on doxycycline and prednisone for joint pains/myalgias may 05. Workup at that time was negative. Fever of unknown origin -due to sepsis with hypothermia, leukocytosis, and bandemia, pt will be given empiric abx. -workup previously was negative -ordered lumbar puncture, Transesophageal echo-Dr Ramirez in am. Sepsis -leukocytosis w neutrophil shift, bandemia and hypothermia -pancultured-urine, blood cx sent -previous workup fuo negative. no LAD on CT chest/abd/pelvis -negative coronavirus Hypertension -Resumed home meds -Monitor renal function while on lisinopril Dyslipidemia - resumed home medications erectile dysfunction -Chronic type 2 diabetes -Consistent carbohydrate diet -sliding scale coverage per protocol aortic valve stenosis echo 03/[address] [facility] repeat echo 05/06/21 (armida)cannot exclude sessile vegetation aortic valve for FELIPA on 05/13/21. npo for at least 8hrs BPH/elevated PSA -refuses urology consultation despite recommendation -check ua w reflex culture. Abnormal JAZMÍN -hep2 (+) -negative Diet: Consistent carbohydrate 2 g sodium DVT prophylaxis: Lovenox CODE STATUS: Full code Vital Signs Vital Signs Date Time Temp Pulse Resp B/P (MAP) Pulse Ox O2 Delivery O2 Flow Rate FiO2 05/12/21 11:00 97.5 79 16 148/68 (94) 95 Room Air Laboratory Data Labs 24H Laboratory Tests 2 05/12/21 10:36: Immature Granulocyte % (Auto) , Neutrophils (%) (Auto) , Nucleated Red Blood Cells % (auto) 0.0, Neutrophils 85H, Band Neutrophils 1, Lymphocytes (Manual) 7L, Monocytes (Manual) 6H, Eosinophils (Manual) 1, Red Blood Cell Morphology NORMAL, Platelet Estimate INCREASED, Erythrocyte Sedimentation Rate 61H, Prothrombin Time 15.3H, Prothromb Time International Ratio 1.17, Activated Partial Thromboplast Time 28.9, Anion Gap 7L, Glomerular Filtration Rate > 60.0, Lactic Acid Level 1.5, Calcium Level 8.8, Total Bilirubin 0.7, Direct Bilirubin 0.3H, Aspartate Amino Transf (AST/SGOT) 15, Alanine Aminotransferase (ALT/SGPT) 71, Alkaline Phosphatase 115, Total Creatine Kinase 18L, Creatine Kinase MB < 1.0, Creatine Kinase MB Relative Index 5.56H, Troponin I < 0.02, C-Reactive Protein, Quantitative 28.20H, Total Protein 6.7, Albumin 2.1L, Albumin/Globulin Ratio 0.5, Amylase Level 42 CBC/BMP Laboratory Tests 05/12/21 10:36 Microbiology Microbiology 05/12/21 Respiratory Virus Panel (PCR) ([facility]) - Final, Complete 05/12/21 Blood Culture, Received Pending 05/12/21 Blood Culture, Received Pending Home Medications Scheduled Amlodipine Besylate (Amlodipine Besylate) 10 Mg Tablet, 10 MG PO DAILY Atorvastatin Calcium (Atorvastatin Calcium) 10 Mg Tablet, 10 MG PO QHS Chlorthalidone (Chlorthalidone) 25 Mg Tablet, 12.5 MG PO Q2D L.acidoph/L.bulg/B.bif/S.therm (Bacid Caplet) 1 Each Tablet, 1 TAB PO DAILY Tamsulosin Hcl (Tamsulosin HCl) 0.4 Mg Capsule, 0.4 MG PO DAILY Telmisartan (Telmisartan) 40 Mg Tablet, 40 MG PO QHS Allergies Coded Allergies: No Known Allergies (Unverified , 05/01/21) A-FIB/CHADSVASC A-FIB History Current/History of A-Fib/PAF?: No Current PO Anticoag Therapy: No Age/Risk Factor Scoring CHADSVASC: CHADSVASC Response (Comments) Value Age Risk Factor Age 65-74 years old 1 Gender Risk Factor Male 0 Hx of CHF No 0 Hx of HTN Yes 1 Hx of Stroke/TIA/or VTE No 0 Hx of Diabetes Yes 1 Hx of Vascular Disease No 0 Total 3 Treatment Treatment ordered: NONE Reason Anticoagulant not given: Recent/upcomin procedure DARCIE RIOJAS MD May 12, 2021 13:26
[2021-05-12] MEDS: LACTOBACILLUS ACIDOPHILUS CAP (BACID) PO SCH (15:39)
[2021-05-12] MEDS: TAMSULOSIN 0.4 MG CAP PO SCH (15:39)
[2021-05-12 15:46] VITALS: BP 135/70
[2021-05-12] MEDS: HumaLOG INSULIN (NovoLOG) PER UNIT SC SCH (17:30)
--- NOTE | 2021-05-12 19:10 | ECGEPIP ---
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
[2021-05-12] MEDS ORDERED: HumaLOG INSULIN (NovoLOG) PER UNIT SC SCH (21:00)
[2021-05-12] MEDS: TELMISARTAN 20 MG TAB PO SCH (21:11)
[2021-05-12] MEDS: ATORVASTATIN 10 MG TAB PO SCH (21:12)
[2021-05-12 22:00] VITALS: BP 146/67
[2021-05-13] VITALS (9 sets, daily range): BP systolic 133–162; BP diastolic 55–75
[2021-05-13] MEDS: IBUPROFEN 400MG TAB PO PRN (03:28)
[2021-05-13 07:07] LABS: BASO # 0.1 10^3/uL (0.0-0.2); BASO % 0.5 % (0.0-1.0); EOS # 0.5 10^3/uL (0.0-0.5); EOS % 2.4 % (0.0-3.0); HEMATOCRIT 37.5 % (42.0-52.0); HEMOGLOBIN 12.5 g/dl (13.5-17.5); LYMPH # 1.4 10^3/uL (1.5-5.0); LYMPH % 6.1 % (24.0-44.0); MEAN CORPUSCULAR HEMOGLOBIN 29.8 pg (27.0-33.0); MEAN CORPUSCULAR HGB CONC 33.3 g/dl (32.0-36.5); MEAN CORPUSCULAR VOLUME 89.3 fl (80.0-96.0); MONO # 1.2 10^3/uL (0.0-0.8); MONO % 5.4 % (2.0-8.0); NEUTROPHILS % 81.3 % (36.0-66.0); PLATELET COUNT, AUTOMATED 498 10^3/uL (150-450); WHITE BLOOD COUNT 22.1 10^3/uL (4.0-10.0)
[2021-05-13] MEDS: TAMSULOSIN 0.4 MG CAP PO SCH (07:17)
[2021-05-13] MEDS: HumaLOG INSULIN (NovoLOG) PER UNIT SC SCH ×2 (07:17→11:57)
[2021-05-13] MEDS: LACTOBACILLUS ACIDOPHILUS CAP (BACID) PO SCH (07:17)
[2021-05-13 07:41] LABS: BLOOD UREA NITROGEN 23 MG/DL (7-18); CALCIUM LEVEL 8.5 MG/DL (8.8-10.2); CARBON DIOXIDE LEVEL 29 MEQ/L (21-32); CHLORIDE LEVEL 99 MEQ/L (98-107); CREATININE FOR GFR 0.83 MG/DL (0.70-1.30); GLOMERULAR FILTRATION RATE > 60.0 (>42); GLUCOSE, FASTING 238 MG/DL (70-100); POTASSIUM SERUM 4.2 MEQ/L (3.5-5.1); SODIUM LEVEL 133 MEQ/L (136-145)
[2021-05-13 07:57] LABS: ERYTHROCYTE SEDIMENTATION RATE 63 mm/hr (0-20)
--- NOTE | 2021-05-13 12:39 | IPNPDOC ---
Date Seen The patient was seen on 05/13/21. Progress Note SUBJECTIVE: Patient has been afebrile since hospital admission he still complains of arthralgias bilateral lower shoulders hips elbows wrists and knees as well as myalgias fatigue and burning sensation in his bilateral thighs. He denies any neck pain photophobia neck rigidity Nausea vomiting abdominal pain constipation Dysuria urgency frequency flank pain PHYSICAL EXAMINATION: VITAL SIGNS: See below GENERAL APPEARANCE: No rash no distress no use of respiratory accessory muscles HEENT: Pupils equally round reactive to light accommodation extract muscles intact normocephalic atraumatic moist mucous membranes neck supple negative meningismus negative Brudzinski and Kernig sign no JVD stridor or carotid bruit no cervical lymphadenopathy no thyromegaly. no TMJ tenderness. no temporal tenderness CARDIOVASCULAR: S1-S2 regular rate rhythm systolic ejection murmur at the apex with radiation to the carotid 3 out of 6 nondisplaced point of maximal impulse no carotid bruit LUNGS: Air entry is equal bilaterally no kyphosis no scoliosis no adventitious breath sounds inspiratory expiratory ratio normal clear to auscultation bilaterally ABDOMEN: Positive bowel sounds x4 quadrants soft nontender nondistended no rebound guarding no hepatosplenomegaly no abdominal bruit noted. no cva te nderness EXTREMITIES: No cyanosis clubbing. no joint effusions or erythema noted on joints of b/l shoulder, elbow, knees, hips. no pitting edema b/l LE. SKIN: NO RASH LABORATORY DATA: See below. IMAGING: See below MICROBIOLOGY: Please see below. ASSESSMENT: 70-year-old male recently discharged on doxycycline and prednisone for joint pains/myalgias may 05. Workup at that time was negative. Fever of unknown origin Previous work-up was negative for any infectious etiology despite being treated with 3 days of IV ceftriaxone and completed a full course of doxycycline as outpatient, Patient has been readmitted 05/12/2021 with recurrent fevers Differential diagnoses include lymphoma but negative CT chest abdomen pelvis and no obvious lymphadenopathy On physical exam, adult stills disease-awaiting LDH and ferritin, culture- negative endocarditis-awaiting transesophageal echocardiogram today at [address] Ramirez due to 2D echo reading by Dr. Peoples: Cannot rule out small sessile vegetation. No empiric antibiotics per infectious disease recommendations Procalcitonin is low Hypertension -Resumed home meds -Monitor renal function while on lisinopril Dyslipidemia - resumed home medications erectile dysfunction -Chronic type 2 diabetes -Consistent carbohydrate diet -sliding scale coverage per protocol aortic valve stenosis echo 03/[address] [facility] repeat echo 05/06/21 (armida)cannot exclude sessile vegetation aortic valve for FELIPA 05/13/21 3PM . npo for at least 8hrs BPH/elevated PSA -refuses urology consultation despite recommendation Abnormal JAZMÍN -hep2 (+) -negative Diet: Consistent carbohydrate 2 g sodium DVT prophylaxis: Lovenox CODE STATUS: Full code VS, I&O, 24H, Fishbone Vital Signs/I&O Vital Signs Date Time Temp Pulse Resp B/P (MAP) Pulse Ox O2 Delivery O2 Flow Rate FiO2 05/13/21 07:20 80 114/84 05/13/21 06:00 97.8 18 96 Room Air I&O- Last 24 Hours up to 6 AM 05/13/21 06:00 Intake Total 380 ml Output Total 400 ml Balance -20 ml Laboratory Data 24H LABS Laboratory Tests 2 05/12/21 15:35: Methicillin-Resist S.aureus DNA PCR NOT DETECTED 05/12/21 17:31: Bedside Glucose (Misc Panel) 250H 05/12/21 21:32: Bedside Glucose (Misc Panel) 285H 05/12/21 21:48: Urine Color YELLOW, Urine Appearance HAZY, Urine pH 5.0, Urine Specific [place] 1.022, Urine Protein NEGATIVE, Urine Glucose (UA) 3+H, Urine Ketones NEGATIVE, Urine Blood 2+H, Urine Nitrite NEGATIVE, Urine Bilirubin NEGATIVE, Urine Urobilinogen 4.0H, Urine Leukocyte Esterase NEGATIVE, Urine WBC (Auto) 2, Urine RBC (Auto) 7H, Urine Hyaline Casts (Auto) 0, Urine Bacteria (Auto) NEGATIVE, Urine Squamous Epithelial Cells 0, Urine Mucus (Auto) SMALL, Urine Sperm (Auto) 05/13/21 05:22: Bedside Glucose (Misc Panel) 238H 05/13/21 06:52: Immature Granulocyte % (Auto) 4.3H, Neutrophils (%) (Auto) 81.3H, Lymphocytes (%) (Auto) 6.1L, Monocytes (%) (Auto) 5.4, Eosinophils (%) (Auto) 2.4, Basophils (%) (Auto) 0.5, Neutrophils # (Auto) 18.0H, Lymphocytes # (Auto) 1.4L, Monocytes # (Auto) 1.2H, Eosinophils # (Auto) 0.5, Basophils # (Auto) 0.1, Nucleated Red Blood Cells % (auto) 0.0, Erythrocyte Sedimentation Rate 63H, Anion Gap 5L, Glomerular Filtration Rate > 60.0, Calcium Level 8.5L, C-Reactive Protein, Quantitative 29.70H 05/13/21 12:06: Bedside Glucose (Misc Panel) 222H CBC/BMP Laboratory Tests 05/13/21 06:52 Microbiology Microbiology 05/13/21 Blood Culture, Received Pending 05/13/21 Blood Culture, Received Pending 05/12/21 Respiratory Virus Panel (PCR) ([facility]) - Final, Complete 05/12/21 Blood Culture - Preliminary, Resulted No growth after 24 hours . All specim... 05/12/21 Blood Culture - Preliminary, Resulted No growth after 24 hours . All specim... DARCIE RIOJAS MD May 13, 2021 12:37
[2021-05-13 13:12] LABS: ANTINUCLEAR ANTIBODIES DIRECT Negative (Negative)
[2021-05-13 13:23] LABS: FERRITIN 1723 NG/ML (26-388); LDH LACTATE DEHYDROGENASE 123 U/L (87-241)
[2021-05-13] MEDS ORDERED: ONDANSETRON 4MG/2ML VIAL As Ordered ONE (15:50)
[2021-05-13] MEDS ORDERED: dexameTHASONE 4 MG/ML 1ML VIAL (J1100 PER 1MG) As Ordered ONE (15:50)
[2021-05-13] MEDS ORDERED: LIDOCAINE 2% INJ 100 MG/5 ML SYRINGE As Ordered ONE (15:50)
[2021-05-13] MEDS ORDERED: MIDAZOLAM INJ 2MG/2ML VIAL (J2250 PER 1MG) As Ordered ONE (15:51)
[2021-05-13] MEDS ORDERED: CETACAINE SPRAY 5GM As Ordered ONE ×2 (15:51→16:27)
[2021-05-13] MEDS ORDERED: propofoL 500 MG/50 ML VIAL As Ordered ONE (15:51)
[2021-05-13] MEDS ORDERED: LIDOCAINE VISCOUS 2% SOLN 15ML UDC As Ordered ONE (15:51)
[2021-05-13] MEDS ORDERED: fentaNYL 100 MCG/2 ML INJECTION (J3010) As Ordered ONE (15:51)
[2021-05-13] MEDS ORDERED: LIDOCAINE 2% 100MG/5ML SDV (FOR ANES.) As Ordered ONE (15:55)
[2021-05-13] MEDS ORDERED: LR 1,000 ML IV SCH (17:00)
[2021-05-13] MEDS ORDERED: ONDANSETRON 4MG/2ML VIAL IV PRN (17:00)
[2021-05-13] MEDS ORDERED: fentaNYL 100 MCG/2 ML INJECTION (J3010) IV PRN (17:00)
[2021-05-13] MEDS ORDERED: oxyCODONE 5MG TAB PO PRN (17:00)
[2021-05-13 17:29] LABS: APPEARANCE, CSF CLEAR (CLEAR); COLOR, CSF COLORLESS (COLORLESS); CSF TUBE# CELL CNT TUBE 1
[2021-05-13 17:32] LABS: APPEARANCE, CSF CLEAR (CLEAR); COLOR, CSF COLORLESS (COLORLESS); CSF TUBE# CELL CNT TUBE 4
[2021-05-13 17:40] LABS: CSF TUBE# GLU TUBE 2; CSF TUBE# TP TUBE 2; GLUCOSE CSF 108 MG/DL (40-75); TOTAL PROTEIN,CSF 45 MG/DL (15-45)
[2021-05-13 18:06] LABS: HEMOGLOBIN A1c 7.9 %
[2021-05-13] MEDS: ATORVASTATIN 10 MG TAB PO SCH (21:02)
[2021-05-13] MEDS: TELMISARTAN 20 MG TAB PO SCH (21:03)
[2021-05-14 02:15] VITALS: BP 121/58
[2021-05-14 05:39] LABS: BASO # 0.1 10^3/uL (0.0-0.2); BASO % 0.3 % (0.0-1.0); EOS % 0.1 % (0.0-3.0); HEMATOCRIT 36.9 % (42.0-52.0); HEMOGLOBIN 12.3 g/dl (13.5-17.5); LYMPH # 0.9 10^3/uL (1.5-5.0); LYMPH % 4.1 % (24.0-44.0); MEAN CORPUSCULAR HEMOGLOBIN 30.2 pg (27.0-33.0); MEAN CORPUSCULAR HGB CONC 33.3 g/dl (32.0-36.5); MEAN CORPUSCULAR VOLUME 90.7 fl (80.0-96.0); MONO # 0.8 10^3/uL (0.0-0.8); MONO % 3.8 % (2.0-8.0); NEUTROPHILS # 18.3 10^3/uL (1.5-8.5); NEUTROPHILS % 87.9 % (36.0-66.0); PLATELET COUNT, AUTOMATED 500 10^3/uL (150-450); RED BLOOD COUNT 4.07 10^6/uL (4.30-6.10); WHITE BLOOD COUNT 20.8 10^3/uL (4.0-10.0)
[2021-05-14 06:31] LABS: BLOOD UREA NITROGEN 27 MG/DL (7-18); CALCIUM LEVEL 8.1 MG/DL (8.8-10.2); CARBON DIOXIDE LEVEL 29 MEQ/L (21-32); CHLORIDE LEVEL 99 MEQ/L (98-107); CREATININE FOR GFR 0.82 MG/DL (0.70-1.30); GLOMERULAR FILTRATION RATE > 60.0 (>42); GLUCOSE, FASTING 319 MG/DL (70-100); POTASSIUM SERUM 5.1 MEQ/L (3.5-5.1); SODIUM LEVEL 134 MEQ/L (136-145)
[2021-05-14 06:41] VITALS: BP 147/66
[2021-05-14 06:52] LABS: ERYTHROCYTE SEDIMENTATION RATE 74 mm/hr (0-20)
[2021-05-14] MEDS ORDERED: ISOVUE-370 76% 100ML VIAL As Ordered ONE (08:45)
[2021-05-14] MEDS: TAMSULOSIN 0.4 MG CAP PO SCH (08:54)
[2021-05-14] MEDS: LACTOBACILLUS ACIDOPHILUS CAP (BACID) PO SCH (08:54)
[2021-05-14] MEDS ORDERED: MEROPENEM INJ 1 GM in IV 1 EA IV SCH (09:00)
[2021-05-14] MEDS: GASTROGRAFIN SOLUTION 30ML PO SCH ×2 (09:28→10:00)
--- NOTE | 2021-05-14 09:33 | T-ECHO ---
TRANSESOPHAGEAL ECHO DATE: 05/13/2021 REFERRING PHYSICIAN: Dr. Nany Morgan INDICATION: Fever of unknown origin. PREPROCEDURE DIAGNOSIS: Fever of unknown origin. POSTPROCEDURE DIAGNOSIS: Fever of unknown origin. FINDINGS: No vegetations. See additional conclusions below. PROCEDURE PERFORMED BY: Pro Ramirez M.D. IT PROFESSIONAL: No assistant manager pt. ANESTHESIA: Monitored anesthesia care (propofol per [employer] CHARGE ZONE ASSEMBLER). COMPLICATIONS: None. PROCEDURE PERFORMED: Transesophageal echocardiogram. PROCEDURE DESCRIPTION: Rhythm was sinus. Patient received Cetacaine spray to the back of the pharynx. After receiving adequate sedation (propofol) administered by the CNRA, esophageal intubation was accomplished by Dr. Ramirez without difficulty. This was performed using a 3-dimensional transesophageal echocardiogram probe (Trevino). The left ventricle appeared normal in size and systolic function. Left ventricular ejection fraction (LVEF) 60% by visual estimate. No regional LV wall motion abnormalities. Right ventricle was normal in size and systolic function. No pericardial effusion. Atrial septum was intact anatomically and by color flow Doppler. Aortic valve was 3-cuspid and displayed moderate focal thickening and focal calcific deposits. No fusion of the aortic cusps. Mild central aortic regurgitation was present. No aortic stenosis. Mild mitral annular calcifications present. Mild mitral regurgitation. Tricuspid leaflets were structurally normal. Mild tricuspid regurgitation. Pulmonic valve appeared structurally normal. No pulmonic regurgitation. No vegetations were seen on any of the cardiac valves. Distal aortic arch and descending thoracic aorta showed mild diffuse atherosclerosis with patchy areas of moderate atheroma. No mobile components of the atheroma seen in the distal aortic arch or descending thoracic aorta. CONCLUSIONS: 1. No vegetations. 2. Moderate aortic valve sclerosis of the a 3-cuspid aortic valve. Mild aortic regurgitation. No aortic stenosis. 3. Mild mitral annular calcification with mild mitral regurgitation. 4. Normal left ventricle size and systolic function. LVEF 60% by visual estimate. 5. No pericardial effusion. 6. Mild to moderate atherosclerosis/atheroma involving the distal aortic arch and descending thoracic aorta.
[2021-05-14 10:15] VITALS: BP 148/63
[2021-05-14 10:39] LABS: COMPLEMENT C3 66 MG/DL (90-180); COMPLEMENT C4 4 MG/DL (10-40); RHEUMATOID FACTOR QUANT < 10.0 IU/ML (<15.0)
[2021-05-14 11:12] LABS: ANTINUCLEAR ANTIBODIES DIRECT Negative (Negative)
--- NOTE | 2021-05-14 11:38 | REP ---
INDICATION: fuo. COMPARISON: 05/03/2021 TECHNIQUE: Standard helical technique after the intravenous administration of 100 cc Isovue 370. Oral bowel preparatory contrast was also administered prior to the exam. FINDINGS: The liver, gallbladder, spleen, pancreas, adrenal glands, and kidneys are essentially unchanged. There are bilateral nonobstructing nephroliths and bilateral renal cysts status quo. There is bilateral perinephric stranding status quo. The abdominal aorta and para-aortic regions are again seen to be within normal limits for the patient's age. There is no significant change in the appearance of the bowel loops or the mesenteries. There is no free fluid or free air. There is no evidence of a mass or adenopathy. The appendix is well visualized and is within normal limits. There is prostatomegaly and corpora amylacea status quo. Bone window technique throughout the examination shows no significant change in appearance of the osseous structures. IMPRESSION: There is no evidence of acute intra-abdominal or intrapelvic disease. Findings as described above. <Electronically signed by Steve Trevino > 05/14/21 [id number]
--- NOTE | 2021-05-14 11:41 | REP ---
INDICATION: fuo night sweats wt loss r/o lad lymphoma COMPARISON: 05/03/2021 the latest prior TECHNIQUE: Standard helical technique after the intravenous administration of 100 cc Isovue 370 FINDINGS: The mediastinum and pulmonary lyudmila are stable. No mass or adenopathy has developed. There are no pleural or pericardial effusions. There is no significant change in appearance of the imaged osseous structures. Evaluation of the lung bernal shows interim development of scattered asymmetric densities in the left lower lobe which are too numerous to count or individually assess. The lung bernal are otherwise unchanged. IMPRESSION: Changes in the left lung lower lobe as described above. Etiology uncertain. Inflammatory changes suspected. Follow-up is suggested. <Electronically signed by Steve Trevino > 05/14/21 [id number]
[2021-05-14 11:51] LABS: IMMUNOGLOBULIN G 1240 MG/DL (681-1648); IMMUNOGLOBULIN M 37.1 MG/DL (40-230); TOTAL PROTEIN 6.4 GM/DL (6.4-8.2)
[2021-05-14] MEDS: HumaLOG INSULIN (NovoLOG) PER UNIT SC SCH ×2 (12:00→17:11)
--- NOTE | 2021-05-14 12:06 | IPNPDOC ---
Date Seen The patient was seen on 05/14/21. Progress Note SUBJECTIVE: P patient says he feels well but has complained to nursing that he continues to have nightly night sweats No documented fever throughout his entire admission No abdominal pain nausea vomiting tolerating his diet well No complaints of cough shortness of breath or sputum production Denies dysuria urgency frequency or flank pain Negative lumbar puncture Negative transesophageal echocardiogram for endocarditis Patient is worried about going home soon. PHYSICAL EXAMINATION: VITAL SIGNS: See below GENERAL APPEARANCE: Appears well smiling and laughing at the bedside making jokes no distress speaks in full sentences HEENT: No JVD thyromegaly moist mucous membranes CARDIOVASCULAR: S1-S2 regular rate rhythm systolic ejection murmur at the apex with radiation to the carotid 3 out of 6 LUNGS: clear to auscultation bilaterally ABDOMEN: Positive bowel sounds x4 quadrants soft nontender nondistended no rebound guarding no hepatosplenomegaly no abdominal bruit noted. no cva tendern ess EXTREMITIES: No cyanosis clubbing. no joint effusions or erythema noted on joints of b/l shoulder, elbow, knees, hips. no pitting edema b/l LE. SKIN: NO RASH LABORATORY DATA: See below. IMAGING: See below MICROBIOLOGY: Please see below. ASSESSMENT: 70-year-old male recently discharged on doxycycline and prednisone for joint pains/myalgias may 05. Workup at that time was negative. Fever of unknown origin Despite leukocytosis which has been persistent and complains of night sweats p atient , clinically looks well ,laughing at the bedside and tolerating his diet without any new complaints I have discussed the case with neck band operator Dr. Matilda Denise who recommends outpatient follow-up on Monday around 1:45 PM in her office May 18, 2021 since blood work will not be available for about 1 week and patient looks clinically well. Per medical oncologist economic forecaster, surgical consult due to abnormal CT abdomen findings in April [address] chest abdomen pelvis check SPEP UPEP heavy metal screen and white blood cell tag scan Per Dr. Chu infectious disease no empiric antibiotics Negative lumbar puncture Negative transesophageal echo Negative JAZMÍN Negative LDH but elevated ferritin with questionable suspicion for adult stills disease but no rash No empiric steroids per rheumatology Hypertension -Resumed home meds -Monitor renal function while on lisinopril Dyslipidemia - resumed home medications erectile dysfunction -Chronic type 2 diabetes A1c 7.9, but patient refuses insulin and fingersticks -Consistent carbohydrate diet -sliding scale coverage per protocol aortic valve stenosis echo 03/[address] [facility] repeat echo 05/06/21 (armida)cannot exclude sessile vegetation aortic valve Negative FELIPA 05/13/21 BPH/elevated PSA -refuses urology consultation despite recommendation Abnormal JAZMÍN -hep2 (+) -negative Diet: Consistent carbohydrate 2 g sodium DVT prophylaxis: Lovenox CODE STATUS: Full code VS, I&O, 24H, Fishbone Vital Signs/I&O Vital Signs Date Time Temp Pulse Resp B/P (MAP) Pulse Ox O2 Delivery O2 Flow Rate FiO2 05/14/21 10:15 97.2 80 17 148/63 (91) 95 Room Air 05/13/21 16:45 10.0 I&O- Last 24 Hours up to 6 AM 05/14/21 05:59 Intake Total 1080 ml Output Total 0 ml Balance 1080 ml Laboratory Data 24H LABS Laboratory Tests 2 05/13/21 12:06: Bedside Glucose (Misc Panel) 222H 05/13/21 13:11: Anti-Nuclear Antibody Screen Negative 05/14/21 05:29: Immature Granulocyte % (Auto) 3.8H, Neutrophils (%) (Auto) 87.9H, Lymphocytes (%) (Auto) 4.1L, Monocytes (%) (Auto) 3.8, Eosinophils (%) (Auto) 0.1, Basophils (%) (Auto) 0.3, Neutrophils # (Auto) 18.3H, Lymphocytes # (Auto) 0.9L, Monocytes # (Auto) 0.8, Eosinophils # (Auto) 0.0, Basophils # (Auto) 0.1, Nucleated Red Blood Cells % (auto) 0.0, Erythrocyte Sedimentation Rate 74H, Anion Gap 6L, Glomerular Filtration Rate > 60.0, Calcium Level 8.1L, C-Reactive Protein, Quantitative 27.40H 05/14/21 09:47: 05/14/21 09:48: Total Protein (PEP) 6.4, Immunoglobulin A 470.0H, Immunoglobulin G 1240, Immunoglobulin M 37.1L, Rheumatoid Factor < 10.0, Complement C3 66L, Complement C4 4L 05/14/21 09:51: 05/14/21 09:53: Differential Slide Review Report, Peripheral Blood Smear Path Consult PERIPHERAL SMEAR 8/6/21 11:38: CBC/BMP Laboratory Tests 05/14/21 05:29 Microbiology Microbiology 05/13/21 Gram Stain - Final, Resulted 05/13/21 CSF Culture, Resulted Pending 05/13/21 - Final, Complete 05/13/21 Blood Culture - Preliminary, Resulted No growth after 24 hours . All specim... 05/13/21 Blood Culture - Preliminary, Resulted No growth after 24 hours . All specim... 05/12/21 Respiratory Virus Panel (PCR) ([facility]) - Final, Complete 05/12/21 Blood Culture - Preliminary, Resulted No Growth after 48 hours. All Specime... 05/12/21 Blood Culture - Preliminary, Resulted No Growth after 48 hours. All Specime... DARCIE RIOJAS MD May 14, 2021 12:06
[2021-05-14 12:52] LABS: CREATININE,RANDOM URINE 55.3 MG/DL; TOTAL PROTEIN,RANDOM URINE 11.4 MG/DL (0.0-12.0)
[2021-05-14 14:00] VITALS: BP 133/55
[2021-05-14 18:28] VITALS: BP 128/59
[2021-05-14] MEDS ORDERED: HumaLOG INSULIN (NovoLOG) PER UNIT SC SCH (21:00)
[2021-05-14] MEDS: TELMISARTAN 20 MG TAB PO SCH (21:41)
[2021-05-14] MEDS: ATORVASTATIN 10 MG TAB PO SCH (21:41)
[2021-05-14 22:00] VITALS: BP 144/67
[2021-05-14] MEDS: IBUPROFEN 400MG TAB PO PRN (23:54)
[2021-05-15 06:00] VITALS: BP 146/67
[2021-05-15 06:18] LABS: BASO # 0.1 10^3/uL (0.0-0.2); BASO % 0.5 % (0.0-1.0); EOS # 0.6 10^3/uL (0.0-0.5); EOS % 3.6 % (0.0-3.0); HEMOGLOBIN 11.8 g/dl (13.5-17.5); LYMPH # 1.9 10^3/uL (1.5-5.0); LYMPH % 10.9 % (24.0-44.0); MEAN CORPUSCULAR HEMOGLOBIN 30.6 pg (27.0-33.0); MEAN CORPUSCULAR HGB CONC 33.7 g/dl (32.0-36.5); MEAN CORPUSCULAR VOLUME 90.9 fl (80.0-96.0); MONO # 1.2 10^3/uL (0.0-0.8); MONO % 6.5 % (2.0-8.0); NEUTROPHILS # 13.5 10^3/uL (1.5-8.5); PLATELET COUNT, AUTOMATED 500 10^3/uL (150-450); RED BLOOD COUNT 3.85 10^6/uL (4.30-6.10); WHITE BLOOD COUNT 17.8 10^3/uL (4.0-10.0)
[2021-05-15 06:43] LABS: ALT/SGPT 177 U/L (12-78); BILIRUBIN,DIRECT 0.2 MG/DL (0.0-0.2); BILIRUBIN,TOTAL 0.4 MG/DL (0.2-1.0); BLOOD UREA NITROGEN 25 MG/DL (7-18); CALCIUM LEVEL 8.3 MG/DL (8.8-10.2); CARBON DIOXIDE LEVEL 30 MEQ/L (21-32); CHLORIDE LEVEL 101 MEQ/L (98-107); CREATININE FOR GFR 0.82 MG/DL (0.70-1.30); GLOMERULAR FILTRATION RATE > 60.0 (>42); GLUCOSE, FASTING 245 MG/DL (70-100); POTASSIUM SERUM 4.9 MEQ/L (3.5-5.1); SODIUM LEVEL 136 MEQ/L (136-145)
[2021-05-15 06:59] LABS: ERYTHROCYTE SEDIMENTATION RATE 62 mm/hr (0-20)
[2021-05-15] MEDS: HumaLOG INSULIN (NovoLOG) PER UNIT SC SCH (07:30)
[2021-05-15] MEDS ORDERED: METF-839 PO (08:36)
[2021-05-15] MEDS: TAMSULOSIN 0.4 MG CAP PO SCH (09:25)
[2021-05-15] MEDS: LACTOBACILLUS ACIDOPHILUS CAP (BACID) PO SCH (09:25)
[2021-05-15 09:27] VITALS: BP 145/102
--- NOTE | 2021-05-15 11:09 | DS.PDOC ---
Discharge Summary General Date of Admission May 12, 2021 at 11:50 Date of Discharge May 15, 2021 Discharge Summary PROCEDURES PERFORMED DURING STAY: Transesophageal echocardiogram lumbar puncture ADMITTING DIAGNOSES: Fever of unknown origin Leukocytosis DISCHARGE DIAGNOSES: Fever of unknown origin Night Sweats Arthralgia Steroid-induced leukocytosis Type 2 diabetes CONSULTANTS: FELIPA by LP by Radiology Telephone consult(did not see the patient): Visual Education Teacher, Dr. Matilda Denise, ID Dr. Chu CHIEF COMPLAINT: Fever Of Unknown Origin 101 and night sweats at home, b/l anterior thigh burning sensation, arthralgia. HISTORY OF PRESENT ILLNESS: 70-year-old male recently discharged 05/05/21 for FUO treated empirically with iv ceftriaxone and doxycycline, and discharged home after ID Dr. Chu recommendation to complete doxycycline at home. Patient was given prednisone for myalgias/joint pains. Previous Workup included negative blood cx, negative Ct chest, abdomen, pelvis, negative lyme, CMV, [place], Anaplasma, Babesia, Ehrlichia, HIV. Despite EBV nuclear ag positive, negative EBV IgM. He c/o on and off tmax 100-0-101 at home since completing doxycycline two days ago with "burning pain in my thighs," and large joint pains w/o effusion, or joint erythema in b/l hips, knees which are worse than ankles, wrists, and shoulder joints. He c/o headache in April, but none this time. He c/o jaw pain w/o ear pain/discharge/ tooth or mandibular pain/dysphagia/odynophagia/sore throat/photophobia, neck rigidity, neck pain. 2 D echo 05/06/21: cannot rule out sessile vegetation in aortic valve. In the ER, wbc 22, hypothermic 95.8, lactic acid 1.5, and persistently elevated esr 61 from 65, and crp 28.2 from 28.9. JAZMÍN (+) -hep2. Hospitalist was asked to admit the patient for FUO. HOSPITAL COURSE: Case was discussed with infectious disease specialist Dr. Roamna Chu who agreed with no empiric antibiotics and repeating UA, with reflex urine cx, blood cultures all of which were negative, and if possible to obtain a rheumatology consult. Transesophageal echocardiogram was negative. lumbar puncture was negative. Repeat rheumatology work-up included JAZMÍN which was negative x2. Repeat CT chest abdomen and pelvis Were negative. CT chest was reviewed with bronze plater on-call Dr. Chavez who did not think that the patient had any significant new changes on repeat CT as compared to the one in April 2021 and does not require any empiric antibiotics there is no fibrosis that is found on the CT imaging on both dates, but does not require any immediate work-up. CT abdomen and pelvis was negative. Surgery on-call Dr. Chatman did recommend Any surgical consultation. To evaluate for possible adult stills disease despite not having a skin rash ferritin was elevated but LDH was normal. Patient had no clinical complaints and without intervention white blood cell count decreased. Elevator Supervisor testing consultant Dr. Yuen recommended checking IgA GM, urine for heavy metals, white blood cell tag scan, repeating CT chest abdomen pelvis, SPEP, UPEP, surgical consultation if patient has abdominal complaints. After discussing the case with lapel padder blindstitch Dr. Matilda Denise, patient will be seen on May 18, 2021 for immediate follow-up. Patient had no fevers during the entire hospital stay and clinically improved to his baseline without intervention During the hospital stay patient was found to have worsening A1c and glucose in the 300s due to recent contrast study he was not started on any oral Metformin but was discharged on 500 twice daily with outpatient follow-up with his primary care physician within a week of discharge. DISCHARGE MEDICATIONS: Please see below. ALLERGIES: Please see below. PHYSICAL EXAMINATION ON DISCHARGE: VITAL SIGNS: Please see below. VITAL SIGNS: See below GENERAL APPEARANCE: No rash no distress no use of respiratory accessory muscles HEENT: Pupils equally round reactive to light accommodation extract muscles intact normocephalic atraumatic moist mucous membranes neck supple negative meningismus negative Brudzinski and Kernig sign no JVD stridor or carotid bruit no cervical lymphadenopathy no thyromegaly. no TMJ tenderness. no temporal tenderness CARDIOVASCULAR: S1-S2 regular rate rhythm systolic ejection murmur at the apex with radiation to the carotid 3 out of 6 nondisplaced point of maximal impulse no carotid bruit LUNGS: Air entry is equal bilaterally no kyphosis no scoliosis no adventitious breath sounds inspiratory expiratory ratio normal clear to auscultation bilaterally ABDOMEN: Positive bowel sounds x4 quadrants soft nontender nondistended no rebound guarding no hepatosplenomegaly no abdominal bruit noted. no cva tenderness EXTREMITIES: No cyanosis clubbing. no joint effusions or erythema noted on joints of b/l shoulder, elbow, knees, hips. no pitting edema b/l LE. SKIN: NO RASH LABORATORY DATA: Please see below. IMAGING: See below ACTIVITY: As tolerated DIET: Consistent carbohydrate DISCHARGE PLAN: Primary care physician appointment within 1 week of hospital discharge Immediate follow-up on May 18, [address]ch [address] Matilda Denise ID Dr. Romana Chu follow-up within 1 week TIME SPENT ON DISCHARGE: 30 minutes Vital Signs/I&Os Vital Signs Date Time Temp Pulse Resp B/P (MAP) Pulse Ox O2 Delivery O2 Flow Rate FiO2 05/15/21 09:27 94 145/102 05/15/21 06:00 97.6 18 97 Room Air 05/13/21 16:45 10.0 I&O- Last 24 Hours up to 6 AM 05/15/21 06:00 Intake Total 2310 ml Output Total 0 ml Balance 2310 ml Laboratory Data Labs 24H Laboratory Tests 2 05/14/21 11:38: Urine Random Creatinine 55.3, Urine Random Total Protein 11.4 05/14/21 12:09: Bedside Glucose (Misc Panel) 310H 05/14/21 16:25: 05/14/21 16:49: Bedside Glucose (Misc Panel) 298H 05/14/21 20:05: Bedside Glucose (Misc Panel) 348H 05/15/21 05:25: Immature Granulocyte % (Auto) 2.5, Neutrophils (%) (Auto) 76.0H, Lymphocytes (%) (Auto) 10.9L, Monocytes (%) (Auto) 6.5, Eosinophils (%) (Auto) 3.6H, Basophils (%) (Auto) 0.5, Neutrophils # (Auto) 13.5H, Lymphocytes # (Auto) 1.9, Monocytes # (Auto) 1.2H, Eosinophils # (Auto) 0.6H, Basophils # (Auto) 0.1, Nucleated Red Blood Cells % (auto) 0.0, Erythrocyte Sedimentation Rate 62H, Anion Gap 5L, Glomerular Filtration Rate > 60.0, Calcium Level 8.3L, Total Bilirubin 0.4, Direct Bilirubin 0.2, Aspartate Amino Transf (AST/SGOT) 54H, Alanine Aminotransferase (ALT/SGPT) 177H, Alkaline Phosphatase 99, C-Reactive Protein, Quantitative 15.10H, Total Protein 6.0L, Albumin 2.0L, Albumin/Globulin Ratio 0.5 CBC/BMP Laboratory Tests 05/15/21 05:25 FSBS Laboratory Tests Test 05/14/21 12:09 05/14/21 16:49 05/14/21 20:05 Range/Units Bedside Glucose (Misc Panel) 310 298 348 83-110 MG/DL Microbiology Microbiology 05/13/21 Gram Stain - Final, Complete 05/13/21 CSF Culture - Final, Complete 05/13/21 - Final, Complete 05/13/21 Blood Culture - Preliminary, Resulted No Growth after 48 hours. All Specime... 05/13/21 Blood Culture - Preliminary, Resulted No Growth after 48 hours. All Specime... 05/12/21 Respiratory Virus Panel (PCR) ([facility]) - Final, Complete 05/12/21 Blood Culture - Preliminary, Resulted No Growth after 72 hours. All specime... 05/12/21 Blood Culture - Preliminary, Resulted No Growth after 72 hours. All specime... Discharge Medications Scheduled Amlodipine Besylate (Amlodipine Besylate) 10 Mg Tablet, 10 MG PO DAILY, (Reported) Atorvastatin Calcium (Atorvastatin Calcium) 10 Mg Tablet, 10 MG PO QHS, (Reported) Chlorthalidone (Chlorthalidone) 25 Mg Tablet, 12.5 MG PO Q2D, (Reported) L.acidoph/L.bulg/B.bif/S.therm (Bacid Caplet) 1 Each Tablet, 1 TAB PO DAILY, (Reported) Metformin HCl (Metformin HCl) 500 Mg Tablet, 500 MG PO BID Tamsulosin Hcl (Tamsulosin HCl) 0.4 Mg Capsule, 0.4 MG PO DAILY, (Reported) Telmisartan (Telmisartan) 40 Mg Tablet, 40 MG PO QHS, (Reported) Allergies Coded Allergies: No Known Allergies (Unverified , 05/01/21) DARCIE RIOJAS MD May 15, 2021 10:52
[2021-05-18 01:06] LABS: ARSENIC BLOOD 7 ug/L (2-23); LEAD BLOOD <1 ug/dL (0-4)
== END 2021-05-15 09:36 | disposition home or self-care (01) | DRG 864 ==
LOC: M ED 09:30 → M ED INP 11:50 → ENRESERV 13:49 → M MSPAV 15:15
PROVIDERS: ADMIT General Practice; ATTEND General Practice
PROC: B246ZZ4 Ultrasonography of Right and Left Heart, Transesophageal (ICD-10-PCS; principal; 2021-05-13 15:30)
DX: R50.9 Fever, unspecified (principal); R97.20 Elevated prostate specific antigen [PSA]; I10 Essential (primary) hypertension; E78.00 Pure hypercholesterolemia, unspecified; R61 Generalized hyperhidrosis; N52.9 Male erectile dysfunction, unspecified; E11.9 Type 2 diabetes mellitus without complications; I35.0 Nonrheumatic aortic (valve) stenosis; N40.0 Benign prostatic hyperplasia without lower urinary tract symptoms; Z79.899 Other long term (current) drug therapy; D72.829 Elevated white blood cell count, unspecified

== ENCOUNTER → 2021-05-18 | Outpatient (REF) | payer MEDICARE ==
[~2021-05-18] MED LIST changes: +BACITAB PO; +METF-839 PO; +TELM1TAB35 PO
[2021-05-18 17:24] LABS: BASO # 0.1 10^3/uL (0.0-0.2); BASO % 0.3 % (0.0-1.0); EOS # 0.2 10^3/uL (0.0-0.5); EOS % 0.8 % (0.0-3.0); HEMATOCRIT 37.4 % (42.0-52.0); HEMOGLOBIN 12.3 g/dl (13.5-17.5); LYMPH # 0.9 10^3/uL (1.5-5.0); LYMPH % 3.9 % (24.0-44.0); MEAN CORPUSCULAR HEMOGLOBIN 29.8 pg (27.0-33.0); MEAN CORPUSCULAR HGB CONC 32.9 g/dl (32.0-36.5); MEAN CORPUSCULAR VOLUME 90.6 fl (80.0-96.0); MONO # 1.2 10^3/uL (0.0-0.8); MONO % 5.3 % (2.0-8.0); NEUTROPHILS # 20.2 10^3/uL (1.5-8.5); PLATELET COUNT, AUTOMATED 518 10^3/uL (150-450); RED BLOOD COUNT 4.13 10^6/uL (4.30-6.10)
[2021-05-18 17:49] LABS: MAGNESIUM LEVEL 2.2 MG/DL (1.8-2.4); PHOSPHORUS LEVEL 3.4 MG/DL (2.5-4.9)
[2021-05-18 17:51] LABS: ERYTHROCYTE SEDIMENTATION RATE 105 mm/hr (0-20)
[2021-05-18 17:57] LABS: CPK CREATINE PHOSPHOKINASE 20 U/L (39-308); MYOGLOBIN 53 NG/ML (16-116)
[2021-05-18 18:02] LABS: BILIRUBIN,DIRECT 0.5 MG/DL (0.0-0.2); BILIRUBIN,TOTAL 0.7 MG/DL (0.2-1.0); C REACTIVE PROTEIN QUANTITATIV 26.9 MG/DL (0.00-0.30); TOTAL PROTEIN 6.5 GM/DL (6.4-8.2)
[2021-05-19 11:56] LABS: PTT LUPUS TYPE ANTICOAG SCREEN 1.4 (0-1.2)
[2021-05-19 12:04] LABS: LUPUS CONFIRM RATIO 1.2
[2021-05-19 12:05] LABS: NORMALIZED RATIO 1.17 (0.00-1.20)
[2021-05-21 13:08] LABS: ANTI-HISTONE ANTIBODIES 0.6 Units (0.0-0.9)
[2021-06-01 14:14] LABS: Mi-2 ANTIBODIES Negative (Negative)
== END ==
LOC: M SFHCRHEU 15:53
PROVIDERS: ATTEND Internal Medicine
DX: M25.40 Effusion, unspecified joint (principal); D84.1 Defects in the complement system; M79.10 Myalgia, unspecified site; R74.8 Abnormal levels of other serum enzymes
CPT/HCPCS: 80076; 82085; 82550; 82607; 83516; 83520; 83540; 83735; 83874; 84100; 85025; 85613; 85652; 85730; 86140; 86160; 86162; 86235; G0463

== ENCOUNTER → 2021-06-04 | Outpatient (CLI) | payer MEDICARE ==
--- NOTE | 2021-06-04 08:48 | REP ---
INDICATION: ELEVATED ENZYMES. COMPARISON: None TECHNIQUE: Real-time sonographic evaluation of the right upper quadrant FINDINGS: Multiple ultrasonographic images of the liver show the hepatic parenchymal echo texture to appear unremarkable. There are no focal masses. There is no intrahepatic ductal dilatation. The common bile duct measures approximately 3.3 mm in its greatest transverse dimension. Multiple ultrasonographic images of the gallbladder show no focal or diffuse gallbladder wall thickening. There are no echogenic foci within the gallbladder lumen, which casts acoustic shadows. There is no pericholecystic edema. Images of the pancreatic region show no gross abnormality. The imaged portion of the right kidney shows 2 anechoic structures 1 measuring 2.9 cm in its greatest dimension and the other 1.3 cm in its greatest dimension both exhibiting posterior wall enhancement and increased through transmission. IMPRESSION: Unremarkable right upper quadrant ultrasound. Two simple right renal cysts as described above. Accredited by the [employer] [place] in General Ultrasound. <Electronically signed by Steve Trevino > 06/04/21 0813
== END ==
LOC: M RAD 06:53
PROVIDERS: ATTEND Internal Medicine
DX: N28.1 Cyst of kidney, acquired (principal); R74.8 Abnormal levels of other serum enzymes

== ENCOUNTER → 2021-06-09 | Outpatient (CLI) | payer MEDICARE | LOC: M LAB 09:55 | PROVIDERS: ATTEND Internal Medicine | DX: R50.9 Fever, unspecified (principal) ==

== ENCOUNTER → 2021-06-09 | Outpatient (REF) | payer MEDICARE | LOC: M SFHCCLAY 08:35 | PROVIDERS: ATTEND Internal Medicine | DX: R50.9 Fever, unspecified (principal) ==

== ENCOUNTER → 2021-06-11 | Outpatient (REF) | payer MEDICARE ==
[2021-06-11 17:07] LABS: ALBUMIN 1.9 GM/DL (3.2-5.2); BILIRUBIN,DIRECT 0.1 MG/DL (0.0-0.2); BILIRUBIN,TOTAL 0.4 MG/DL (0.2-1.0); TOTAL PROTEIN 7.2 GM/DL (6.4-8.2)
[2021-06-11 17:16] LABS: BLOOD UREA NITROGEN 15 MG/DL (7-18); CALCIUM LEVEL 8.8 MG/DL (8.8-10.2); CARBON DIOXIDE LEVEL 30 MEQ/L (21-32); CHLORIDE LEVEL 98 MEQ/L (98-107); GLOMERULAR FILTRATION RATE > 60.0 (>42); GLUCOSE, FASTING 125 MG/DL (70-100); POTASSIUM SERUM 4.1 MEQ/L (3.5-5.1); SODIUM LEVEL 136 MEQ/L (136-145)
[2021-06-11 17:24] LABS: HEPATITIS B SURFACE ANTIBODY NEGATIVE (POSITIVE); HEPATITIS B SURFACE ANTIGEN NEGATIVE (NEGATIVE)
[2021-06-15 19:08] LABS: ANCA-ATYPICAL <1:20 titer (Neg:<1:20); ANTI PARVO VIRUS LEVEL IGG 3.6 index (0.0-0.8); ANTI PARVO VIRUS LEVEL IgM 0.2 index (0.0-0.8); CYTOPLASMIC NEUTROP AB ANCA-C <1:20 titer (Neg:<1:20); HEPATITIS B CORE ANTIBODY IGG Negative (Negative); PERINUCLEAR AB ANCA-P <1:20 titer (Neg:<1:20)
== END ==
LOC: M SFHCRHEU 14:03
PROVIDERS: ATTEND Internal Medicine
DX: R74.8 Abnormal levels of other serum enzymes (principal); D72.810 Lymphocytopenia; M25.40 Effusion, unspecified joint

== ENCOUNTER → 2021-06-16 | Outpatient (CLI) | payer MEDICARE ==
--- NOTE | 2021-06-16 09:20 | REP ---
INDICATION: OSTEOARTHRITIS OF HIP, UNSPECIFIED. History rotator cuff tendinitis and osteoarthritis of the shoulder. COMPARISON: None. TECHNIQUE: Six views, bilateral shoulder series. FINDINGS: The glenohumeral and acromioclavicular joints are normally aligned bilaterally. There is osteoarthritic narrowing, sclerosis, and hypertrophy of the AC joints bilaterally. This is more pronounced on the right than the left. There is mild osteoarthritic glenohumeral spur formation bilaterally as well, slightly more pronounced on the left than the right. No erosive changes seen. No fracture or subluxation is seen. There is a small bone island in the proximal humerus on the right. There is an old healed rib fracture on the right. IMPRESSION: Bilateral osteoarthritic changes affecting the AC and glenohumeral joints as above. <Electronically signed by Dontrell Santacruz > 06/16/21 [id number]
--- NOTE | 2021-06-16 09:25 | REP ---
INDICATION: OSTEOARTHRITIS OF HIP, UNSPECIFIED. COMPARISON: Comparison is made with CT images from May 14, 2021. TECHNIQUE: AP view of the pelvis and AP and frogleg views of each hip are provided. Total five views. FINDINGS: Bony pelvic ring is intact. Vascular calcification is observed. Sacrum and SI joints are intact. Symphysis pubis is normally aligned. There is mild chondrocalcinosis at the symphysis. Osteoarthritic changes are seen at the hips bilaterally mild in degree with superior acetabular spurring. There is mild chondrocalcinosis at the right hip. Old posttraumatic deformity is seen in the proximal femur on the left. Femoral heads are smooth and rounded. No erosive changes seen. IMPRESSION: Bilateral hip osteoarthritis. Chondrocalcinosis in the right hip. Vascular calcification. <Electronically signed by Dontrell Santacruz > 06/16/21 [id number]
== END ==
LOC: M RAD 08:39
PROVIDERS: ATTEND Internal Medicine
DX: M16.0 Bilateral primary osteoarthritis of hip (principal)

== ENCOUNTER → 2021-06-21 | Outpatient (CLI) | payer MEDICARE ==
[2021-06-21 13:38] LABS: APPEARANCE, URINE CLEAR (CLEAR); BACTERIA, URINE AUTO NEGATIVE (NEGATIVE); BILIRUBIN, URINE AUTO NEGATIVE (NEGATIVE); BLOOD, URINE BLOOD NEGATIVE (NEGATIVE); COLOR, URINE YELLOW (YELLOW); GLUCOSE, URINE (UA) AUTO NEGATIVE (NEGATIVE); KETONE, URINE AUTO NEGATIVE (NEGATIVE); LEUKOCYTE ESTERASE, URINE AUTO NEGATIVE (NEGATIVE); MUCUS, URINE SMALL (NEGATIVE); NITRITE, URINE AUTO NEGATIVE (NEGATIVE); PROTEIN, URINE AUTO NEGATIVE (NEGATIVE); RBC, URINE AUTO 0 /HPF (0-3); SPECIFIC GRAVITY URINE AUTO 1.017 (1.002-1.035); SQUAMOUS EPITHELIAL CELL UR AU 0 /HPF (0-6); WBC, URINE AUTO 1 /HPF (0-3)
== END ==
LOC: M PLALAB 09:51
PROVIDERS: ATTEND Nurse Practitioner Women's Health
DX: N40.1 Benign prostatic hyperplasia with lower urinary tract symptoms (principal); R97.20 Elevated prostate specific antigen [PSA]

== ENCOUNTER → 2021-08-17 | Outpatient (REF) | payer MEDICARE ==
[2021-08-17 18:06] LABS: BASO # 0.1 10^3/uL (0.0-0.2); BASO % 0.6 % (0.0-1.0); EOS # 0.1 10^3/uL (0.0-0.5); EOS % 1.3 % (0.0-3.0); HEMATOCRIT 35.1 % (42.0-52.0); HEMOGLOBIN 10.4 g/dl (13.5-17.5); LYMPH # 1.6 10^3/uL (1.5-5.0); LYMPH % 18.8 % (24.0-44.0); MEAN CORPUSCULAR HEMOGLOBIN 25.1 pg (27.0-33.0); MEAN CORPUSCULAR HGB CONC 29.6 g/dl (32.0-36.5); MEAN CORPUSCULAR VOLUME 84.6 fl (80.0-96.0); MONO # 0.5 10^3/uL (0.0-0.8); NEUTROPHILS # 6.1 10^3/uL (1.5-8.5); NEUTROPHILS % 72.5 % (36.0-66.0); PLATELET COUNT, AUTOMATED 424 10^3/uL (150-450); RED BLOOD COUNT 4.15 10^6/uL (4.30-6.10); WHITE BLOOD COUNT 8.4 10^3/uL (4.0-10.0)
[2021-08-17 20:48] LABS: CHOLESTEROL RISK RATIO 4.916 (<5); LDL CHOLESTEROL 123.4 MG/DL (<100); THYROID STIMULATING HORMONE 2.26 uIU/ML (0.358-3.740)
[2021-08-17 21:13] LABS: HEMOGLOBIN A1c 7.3 %
[2021-08-17 22:43] LABS: TOTAL 25(OH) VITAMIN D 42.4 NG/ML (30.0-100.0)
== END ==
LOC: M SFHCCAPE 09:35
PROVIDERS: ATTEND Physician Assistant
DX: E55.9 Vitamin D deficiency, unspecified (principal); E11.9 Type 2 diabetes mellitus without complications

== ENCOUNTER → 2022-01-18 | Outpatient (REF) | payer MEDICARE ==
[2022-01-18 15:58] LABS: BASO # 0.1 10^3/uL (0.0-0.2); BASO % 0.8 % (0.0-1.0); EOS # 0.1 10^3/uL (0.0-0.5); EOS % 1.6 % (0.0-3.0); HEMATOCRIT 42.7 % (42.0-52.0); HEMOGLOBIN 14.4 g/dl (13.5-17.5); LYMPH # 2.1 10^3/uL (1.5-5.0); LYMPH % 27.9 % (24.0-44.0); MEAN CORPUSCULAR HEMOGLOBIN 29.9 pg (27.0-33.0); MEAN CORPUSCULAR HGB CONC 33.7 g/dl (32.0-36.5); MEAN CORPUSCULAR VOLUME 88.8 fl (80.0-96.0); MONO # 0.5 10^3/uL (0.0-0.8); MONO % 6.4 % (2.0-8.0); NEUTROPHILS # 4.7 10^3/uL (1.5-8.5); NEUTROPHILS % 62.1 % (36.0-66.0); PLATELET COUNT, AUTOMATED 274 10^3/uL (150-450); RED BLOOD COUNT 4.81 10^6/uL (4.30-6.10); WHITE BLOOD COUNT 7.5 10^3/uL (4.0-10.0)
[2022-01-18 16:56] LABS: ERYTHROCYTE SEDIMENTATION RATE 8 mm/hr (0-20)
[2022-01-18 18:10] LABS: MALB URINE SIEMENS 18.4 MG/L; MAU/CREAT RATIO 14.3 MCG/MG (0.0-30.0)
[2022-01-18 18:18] LABS: ALBUMIN 3.8 GM/DL (3.2-5.2); ALT/SGPT 41 U/L (12-78); BILIRUBIN,DIRECT 0.1 MG/DL (0.0-0.2); BILIRUBIN,TOTAL 0.5 MG/DL (0.2-1.0); BLOOD UREA NITROGEN 17 MG/DL (7-18); CALCIUM LEVEL 9.4 MG/DL (8.8-10.2); CARBON DIOXIDE LEVEL 27 MEQ/L (21-32); CHLORIDE LEVEL 105 MEQ/L (98-107); CHOLESTEROL LEVEL 236 MG/DL (<200); CHOLESTEROL RISK RATIO 6.941 (<5); COMPLEMENT C3 157 MG/DL (90-180); COMPLEMENT C4 32 MG/DL (10-40); CREATININE FOR GFR 0.83 MG/DL (0.70-1.30); GLOMERULAR FILTRATION RATE > 60.0 (>42); GLUCOSE, FASTING 160 MG/DL (70-100); HDL CHOLESTEROL 34 MG/DL (>40); IRON (FE) 90 UG/DL (65-175); LDL CHOLESTEROL 155 MG/DL (<100); NON-HDL-C 202 MG/DL; POTASSIUM SERUM 4.5 MEQ/L (3.5-5.1); SODIUM LEVEL 138 MEQ/L (136-145); TOTAL PROTEIN 7.7 GM/DL (6.4-8.2); TRIGLYCERIDES LEVEL 234 MG/DL (<150)
[2022-01-18 18:51] LABS: HEMOGLOBIN A1c 7.4 %
[2022-01-19 10:58] LABS: TOTAL 25(OH) VITAMIN D 15.3 NG/ML (30.0-100.0)
== END ==
LOC: M SFHCCAPE 08:08
PROVIDERS: ATTEND Physician Assistant
DX: D84.1 Defects in the complement system (principal); R74.8 Abnormal levels of other serum enzymes; E61.1 Iron deficiency; R65.10 Systemic inflammatory response syndrome (SIRS) of non-infectious origin without acute organ dysfunction; E55.9 Vitamin D deficiency, unspecified; E11.9 Type 2 diabetes mellitus without complications

== ENCOUNTER → 2022-04-04 | Outpatient (CLI) | payer MEDICARE ==
[2022-04-04 16:09] LABS: ALBUMIN 3.9 GM/DL (3.2-5.2); ALT/SGPT 42 U/L (12-78); BILIRUBIN,TOTAL 0.7 MG/DL (0.2-1.0); BLOOD UREA NITROGEN 12 MG/DL (7-18); CALCIUM LEVEL 8.9 MG/DL (8.8-10.2); CARBON DIOXIDE LEVEL 30 MEQ/L (21-32); CHLORIDE LEVEL 104 MEQ/L (98-107); CHOLESTEROL LEVEL 109 MG/DL (<200); CHOLESTEROL RISK RATIO 3.114 (<5); CREATININE FOR GFR 0.88 MG/DL (0.70-1.30); GLOMERULAR FILTRATION RATE > 60.0 (>42); GLUCOSE, FASTING 195 MG/DL (70-100); HDL CHOLESTEROL 35 MG/DL (>40); LDL CHOLESTEROL 51 MG/DL (<100); NON-HDL-C 74 MG/DL; POTASSIUM SERUM 4.4 MEQ/L (3.5-5.1); SODIUM LEVEL 140 MEQ/L (136-145); TOTAL PROTEIN 7.5 GM/DL (6.4-8.2); TRIGLYCERIDES LEVEL 113 MG/DL (<150)
== END ==
LOC: M PLALAB 09:46
PROVIDERS: ATTEND Physician Assistant
DX: E78.2 Mixed hyperlipidemia (principal)

== ENCOUNTER → 2022-06-01 | Outpatient (REF) | payer MEDICARE ==
[2022-06-01 17:43] LABS: BASO % 0.5 % (0.0-1.0); EOS # 0.1 10^3/uL (0.0-0.5); EOS % 1.5 % (0.0-3.0); HEMATOCRIT 40.3 % (42.0-52.0); HEMOGLOBIN 13.8 g/dl (13.5-17.5); LYMPH # 2.1 10^3/uL (1.5-5.0); MEAN CORPUSCULAR HEMOGLOBIN 31.3 pg (27.0-33.0); MEAN CORPUSCULAR HGB CONC 34.2 g/dl (32.0-36.5); MEAN CORPUSCULAR VOLUME 91.4 fl (80.0-96.0); MONO # 0.5 10^3/uL (0.0-0.8); MONO % 6.3 % (2.0-8.0); NEUTROPHILS # 4.7 10^3/uL (1.5-8.5); NEUTROPHILS % 62.9 % (36.0-66.0); PLATELET COUNT, AUTOMATED 254 10^3/uL (150-450); RED BLOOD COUNT 4.41 10^6/uL (4.30-6.10); WHITE BLOOD COUNT 7.4 10^3/uL (4.0-10.0)
[2022-06-01 17:55] LABS: ALBUMIN 3.8 GM/DL (3.2-5.2); ALT/SGPT 46 U/L (12-78); BILIRUBIN,TOTAL 0.6 MG/DL (0.2-1.0); BLOOD UREA NITROGEN 15 MG/DL (7-18); CALCIUM LEVEL 8.9 MG/DL (8.8-10.2); CARBON DIOXIDE LEVEL 29 MEQ/L (21-32); CHLORIDE LEVEL 104 MEQ/L (98-107); CHOLESTEROL LEVEL 111 MG/DL (<200); CHOLESTEROL RISK RATIO 3.083 (<5); CREATININE FOR GFR 0.89 MG/DL (0.70-1.30); GLOMERULAR FILTRATION RATE > 60.0 (>42); GLUCOSE, FASTING 203 MG/DL (70-100); HDL CHOLESTEROL 36 MG/DL (>40); HEMOGLOBIN A1c 8.7 %; LDL CHOLESTEROL 47 MG/DL (<100); NON-HDL-C 75 MG/DL; POTASSIUM SERUM 4.5 MEQ/L (3.5-5.1); SODIUM LEVEL 138 MEQ/L (136-145); TOTAL PROTEIN 7.6 GM/DL (6.4-8.2); TRIGLYCERIDES LEVEL 142 MG/DL (<150)
[2022-06-01 18:08] LABS: MALB URINE SIEMENS 36.5 MG/L; MAU/CREAT RATIO 21.9 MCG/MG (0.0-30.0)
[2022-06-01 18:23] LABS: TOTAL 25(OH) VITAMIN D 52.8 NG/ML (30.0-100.0)
== END ==
LOC: M SFHCCAPE 09:13
PROVIDERS: ATTEND Physician Assistant
DX: E11.9 Type 2 diabetes mellitus without complications (principal); E78.5 Hyperlipidemia, unspecified; E55.9 Vitamin D deficiency, unspecified

== ENCOUNTER → 2022-06-27 | Outpatient (CLI) | payer MEDICARE | LOC: M PLAIMG 12:40 | PROVIDERS: ATTEND Physician Assistant | DX: R94.2 Abnormal results of pulmonary function studies (principal) ==

== ENCOUNTER → 2022-08-17 | Outpatient (CLI) | payer MEDICARE | LOC: M RAD 12:02 | PROVIDERS: ATTEND Physician Assistant | DX: R09.89 Other specified symptoms and signs involving the circulatory and respiratory systems (principal) ==

== ENCOUNTER → 2022-08-31 | Outpatient (REF) | payer MEDICARE ==
[2022-08-31 17:35] LABS: BASO % 0.6 % (0.0-1.0); EOS # 0.1 10^3/uL (0.0-0.5); EOS % 1.4 % (0.0-3.0); HEMATOCRIT 40.4 % (42.0-52.0); HEMOGLOBIN 13.3 g/dl (13.5-17.5); LYMPH # 1.8 10^3/uL (1.5-5.0); LYMPH % 26.4 % (24.0-44.0); MEAN CORPUSCULAR HEMOGLOBIN 30.8 pg (27.0-33.0); MEAN CORPUSCULAR HGB CONC 32.9 g/dl (32.0-36.5); MEAN CORPUSCULAR VOLUME 93.5 fl (80.0-96.0); MONO # 0.4 10^3/uL (0.0-0.8); MONO % 5.9 % (2.0-8.0); NEUTROPHILS # 4.3 10^3/uL (1.5-8.5); NEUTROPHILS % 65.1 % (36.0-66.0); PLATELET COUNT, AUTOMATED 255 10^3/uL (150-450); RED BLOOD COUNT 4.32 10^6/uL (4.30-6.10); WHITE BLOOD COUNT 6.6 10^3/uL (4.0-10.0)
[2022-08-31 18:07] LABS: ALBUMIN 4.1 G/DL (3.2-5.2); ALT/SGPT 34 U/L (7.0-40); BILIRUBIN,TOTAL 0.7 MG/DL (0.3-1.2); BLOOD UREA NITROGEN 18 MG/DL (9-23); CALCIUM LEVEL 9.1 MG/DL (8.3-10.6); CARBON DIOXIDE LEVEL 27 MMOL/L (20-31); CHLORIDE LEVEL 104 MMOL/L (98-107); CREATININE FOR GFR 0.77 MG/DL (0.70-1.30); FREE T4 1.05 NG/DL (0.89-1.76); GLOMERULAR FILTRATION RATE > 60.0 (>42); GLUCOSE, FASTING 142 MG/DL (74-106); IRON (FE) 125 UG/DL (65-175); PERCENT SATURATION 42.7 % (19.7-50.0); POTASSIUM SERUM 4.4 MMOL/L (3.5-5.1); SODIUM LEVEL 139 MMOL/L (136-145); THYROID STIMULATING HORMONE 2.563 uIU/ML (0.55-4.78); TOTAL IRON BINDING CAPACITY 293 UG/DL (250-425); TOTAL PROTEIN 7.1 G/DL (5.7-8.2)
[2022-08-31 19:08] LABS: HEMOGLOBIN A1c 6.7 % (4.0-6.0)
== END ==
LOC: M SFHCCAPE 09:02
PROVIDERS: ATTEND Physician Assistant
DX: Z00.00 Encounter for general adult medical examination without abnormal findings (principal); E61.1 Iron deficiency; E07.9 Disorder of thyroid, unspecified; Z12.5 Encounter for screening for malignant neoplasm of prostate
CPT/HCPCS: 80053; 82728; 83036; 83550; 84439; 84443; 85025; G0103

== ENCOUNTER → 2022-09-27 | Outpatient (REF) | payer MEDICARE ==
[2022-09-27 17:36] LABS: BASO % 0.5 % (0.0-1.0); EOS # 0.1 10^3/uL (0.0-0.5); EOS % 1.2 % (0.0-3.0); HEMATOCRIT 41.2 % (42.0-52.0); HEMOGLOBIN 13.8 g/dl (13.5-17.5); LYMPH % 24.6 % (24.0-44.0); MEAN CORPUSCULAR HEMOGLOBIN 31.2 pg (27.0-33.0); MEAN CORPUSCULAR HGB CONC 33.5 g/dl (32.0-36.5); MONO # 0.5 10^3/uL (0.0-0.8); MONO % 6.4 % (2.0-8.0); NEUTROPHILS # 5.5 10^3/uL (1.5-8.5); NEUTROPHILS % 66.9 % (36.0-66.0); PLATELET COUNT, AUTOMATED 270 10^3/uL (150-450); RED BLOOD COUNT 4.43 10^6/uL (4.30-6.10); WHITE BLOOD COUNT 8.2 10^3/uL (4.0-10.0)
[2022-09-27 17:44] LABS: PERCENT SATURATION 26.5 % (19.7-50.0)
[2022-09-27 17:45] LABS: FERRITIN 207.3 NG/ML (10.5-307.3); THYROID STIMULATING HORMONE 4.912 uIU/ML (0.55-4.78)
[2022-09-27 17:46] LABS: FREE T4 1.08 NG/DL (0.89-1.76)
[2022-09-27 20:23] LABS: APPEARANCE, URINE MANUAL HAZY (CLEAR); COLOR, URINE MANUAL YELLOW (YELLOW)
[2022-09-27 20:24] LABS: BILIRUBIN, URINE MANUAL NEGATIVE (NEGATIVE); BLOOD URINE MANUAL NEGATIVE (NEGATIVE); GLUCOSE, URINE (UA) MANUAL NEGATIVE (NEGATIVE); KETONE, URINE MANUAL NEGATIVE (NEGATIVE); LEUKOCYTE ESTERASE, URINE MAN NEGATIVE (NEGATIVE); NITRITE, URINE MANUAL NEGATIVE (NEGATIVE); PROTEIN, URINE MANUAL NEGATIVE (NEGATIVE); UROBILINOGEN, URINE MANUAL NORMAL (NORMAL)
[2022-09-27 21:04] LABS: AMORPHOUS SEDIMENT, URINE LARGE AMOUNT (NEGATIVE); BACTERIA, URINE NONE SEEN; HYALINE CAST, URINE NONE SEEN /lpf (0-1); RBC, URINE NONE SEEN /hpf (0-3); SQUAMOUS EPITHELIAL CELL URINE SMALL AMOUNT /hpf (SMALL AMT); URIC ACID CRYSTALS, URINE SMALL AMOUNT /hpf; WBC, URINE 0-1 /hpf (0-3)
== END ==
LOC: M SFHCCAPE 08:04
PROVIDERS: ATTEND Physician Assistant
DX: D64.9 Anemia, unspecified (principal)

== ENCOUNTER → 2023-02-07 | Outpatient (CLI) | payer MEDICARE ==
[2023-02-07 12:18] LABS: ALBUMIN 4.2 G/DL (3.2-5.2); ALKALINE PHOSPHATASE 80 U/L (46-116); ALT/SGPT 32 U/L (7.0-40); AST/SGOT 21 U/L (<34); BILIRUBIN,TOTAL 0.8 MG/DL (0.3-1.2); BLOOD UREA NITROGEN 17 MG/DL (9-23); CALCIUM LEVEL 9.5 MG/DL (8.3-10.6); CARBON DIOXIDE LEVEL 29 MMOL/L (20-31); CHLORIDE LEVEL 102 MMOL/L (98-107); CHOLESTEROL LEVEL 98 MG/DL (<200); CHOLESTEROL RISK RATIO 2.54 (<5); GLOMERULAR FILTRATION RATE > 60.0 (>42); GLUCOSE, FASTING 137 MG/DL (74-106); HDL CHOLESTEROL 38.5 MG/DL (>40); LDL CHOLESTEROL 33.5 MG/DL (<100); NON-HDL-C 59.5 MG/DL; POTASSIUM SERUM 5.2 MMOL/L (3.5-5.1); SODIUM LEVEL 139 MMOL/L (136-145); TOTAL PROTEIN 7.3 G/DL (5.7-8.2); TRIGLYCERIDES LEVEL 130 MG/DL (<150)
== END ==
LOC: M PLALAB 08:53
PROVIDERS: ATTEND Physician Assistant
DX: I10 Essential (primary) hypertension (principal)

== ENCOUNTER → 2023-08-14 | Outpatient (CLI) | payer MEDICARE ==
[2023-08-14 08:59] LABS: BLOOD UREA NITROGEN 20 MG/DL (9-23); CALCIUM LEVEL 9.1 MG/DL (8.3-10.6); CARBON DIOXIDE LEVEL 27 MMOL/L (20-31); CHLORIDE LEVEL 103 MMOL/L (98-107); CREATININE FOR GFR 0.84 MG/DL (0.70-1.30); GLOMERULAR FILTRATION RATE > 60.0 (>42); GLUCOSE, FASTING 191 MG/DL (74-106); POTASSIUM SERUM 4.6 MMOL/L (3.5-5.1); SODIUM LEVEL 140 MMOL/L (136-145)
== END ==
LOC: M LAB 07:51
PROVIDERS: ATTEND Physician Assistant
DX: I10 Essential (primary) hypertension (principal)

== ENCOUNTER → 2023-09-12 | Outpatient (CLI) | payer MEDICARE ==
[2023-09-12 08:44] LABS: BASO % 0.6 % (0.0-1.0); EOS # 0.1 10^3/uL (0.0-0.5); EOS % 1.1 % (0.0-3.0); HEMATOCRIT 41.1 % (42.0-52.0); HEMOGLOBIN 14.2 g/dl (13.5-17.5); LYMPH # 1.8 10^3/uL (1.5-5.0); MEAN CORPUSCULAR HEMOGLOBIN 31.1 pg (27.0-33.0); MEAN CORPUSCULAR HGB CONC 34.5 g/dl (32.0-36.5); MEAN CORPUSCULAR VOLUME 89.9 fl (80.0-96.0); MONO # 0.4 10^3/uL (0.0-0.8); MONO % 5.9 % (2.0-8.0); NEUTROPHILS # 4.8 10^3/uL (1.5-8.5); NEUTROPHILS % 66.6 % (36.0-66.0); PLATELET COUNT, AUTOMATED 250 10^3/uL (150-450); RED BLOOD COUNT 4.57 10^6/uL (4.30-6.10); WHITE BLOOD COUNT 7.2 10^3/uL (4.0-10.0)
[2023-09-12 09:08] LABS: MAU/CREAT RATIO 25.5 MCG/MG (0.0-30.0)
[2023-09-12 09:09] LABS: ALKALINE PHOSPHATASE 78 U/L (46-116); ALT/SGPT 40 U/L (7.0-40); AST/SGOT 15 U/L (<34); BILIRUBIN,TOTAL 0.6 MG/DL (0.3-1.2); BLOOD UREA NITROGEN 17 MG/DL (9-23); CALCIUM LEVEL 9.3 MG/DL (8.3-10.6); CARBON DIOXIDE LEVEL 24 MMOL/L (20-31); CHLORIDE LEVEL 106 MMOL/L (98-107); CHOLESTEROL LEVEL 115 MG/DL (<200); CHOLESTEROL RISK RATIO 3.05 (<5); GLOMERULAR FILTRATION RATE > 60.0 (>42); GLUCOSE, FASTING 200 MG/DL (74-106); HDL CHOLESTEROL 37.6 MG/DL (>40); NON-HDL-C 77.4 MG/DL; POTASSIUM SERUM 4.3 MMOL/L (3.5-5.1); SODIUM LEVEL 139 MMOL/L (136-145); TOTAL PROTEIN 7.5 G/DL (5.7-8.2); TRIGLYCERIDES LEVEL 127 MG/DL (<150)
[2023-09-12 09:14] LABS: FREE T4 1.05 NG/DL (0.89-1.76); THYROID STIMULATING HORMONE 3.049 uIU/ML (0.55-4.78)
[2023-09-12 09:15] LABS: TOTAL 25(OH) VITAMIN D 27.4 NG/ML (20.0-100.0)
[2023-09-12 10:00] LABS: HEMOGLOBIN A1c 7.8 % (4.0-6.0)
== END ==
LOC: M LAB 08:15
PROVIDERS: ATTEND Physician Assistant
DX: Z00.00 Encounter for general adult medical examination without abnormal findings (principal); E11.9 Type 2 diabetes mellitus without complications; E55.9 Vitamin D deficiency, unspecified; Z12.5 Encounter for screening for malignant neoplasm of prostate
CPT/HCPCS: 36415; 80053; 80061; 82043; 82306; 83036; 84439; 84443; 85025; G0103

== ENCOUNTER → 2024-02-12 | Outpatient (CLI) | payer MEDICARE ==
[2024-02-12 13:09] LABS: HEMATOCRIT 41.5 % (42.0-52.0); HEMOGLOBIN 14.4 g/dl (13.5-17.5); MEAN CORPUSCULAR HEMOGLOBIN 31.7 pg (27.0-33.0); MEAN CORPUSCULAR HGB CONC 34.7 g/dl (32.0-36.5); MEAN CORPUSCULAR VOLUME 91.4 fl (80.0-96.0); PLATELET COUNT, AUTOMATED 243 10^3/uL (150-450); RED BLOOD COUNT 4.54 10^6/uL (4.30-6.10); WHITE BLOOD COUNT 7.8 10^3/uL (4.0-10.0)
[2024-02-12 13:20] LABS: ALBUMIN 3.6 G/DL (3.2-5.2); ALKALINE PHOSPHATASE 75 U/L (46-116); ALT/SGPT 42 U/L (7.0-40); AST/SGOT 14 U/L (<34); BILIRUBIN,TOTAL 0.6 MG/DL (0.3-1.2); BLOOD UREA NITROGEN 19 MG/DL (9-23); CALCIUM LEVEL 9.4 MG/DL (8.3-10.6); CARBON DIOXIDE LEVEL 28 MMOL/L (20-31); CHLORIDE LEVEL 105 MMOL/L (98-107); CHOLESTEROL LEVEL 117 MG/DL (<200); CHOLESTEROL RISK RATIO 3.13 (<5); CREATININE FOR GFR 0.82 MG/DL (0.70-1.30); GLOMERULAR FILTRATION RATE > 60.0 (>42); GLUCOSE, FASTING 208 MG/DL (74-106); HDL CHOLESTEROL 37.3 MG/DL (>40); LDL CHOLESTEROL 47.7 MG/DL (<100); NON-HDL-C 79.7 MG/DL; POTASSIUM SERUM 5.1 MMOL/L (3.5-5.1); SODIUM LEVEL 139 MMOL/L (136-145); TOTAL PROTEIN 7.2 G/DL (5.7-8.2); TRIGLYCERIDES LEVEL 160 MG/DL (<150)
== END ==
LOC: M PLALAB 08:18
PROVIDERS: ATTEND Physician Assistant
DX: I10 Essential (primary) hypertension (principal)

== ENCOUNTER → 2024-02-22 | Outpatient (CLI) | payer MEDICARE | LOC: M PLAIMG 07:51 | PROVIDERS: ATTEND Physician Assistant | DX: I35.2 Nonrheumatic aortic (valve) stenosis with insufficiency (principal) ==

== ENCOUNTER → 2024-03-12 | Outpatient (CLI) | payer MEDICARE ==
[2024-03-12 15:31] LABS: HEMOGLOBIN 14.3 g/dl (13.5-17.5); MEAN CORPUSCULAR HGB CONC 33.3 g/dl (32.0-36.5); MEAN CORPUSCULAR VOLUME 93.3 fl (80.0-96.0); PLATELET COUNT, AUTOMATED 248 10^3/uL (150-450); RED BLOOD COUNT 4.61 10^6/uL (4.30-6.10); WHITE BLOOD COUNT 8.1 10^3/uL (4.0-10.0)
[2024-03-12 15:55] LABS: BLOOD UREA NITROGEN 18 MG/DL (9-23); CALCIUM LEVEL 9.6 MG/DL (8.3-10.6); CARBON DIOXIDE LEVEL 30 MMOL/L (20-31); CHLORIDE LEVEL 102 MMOL/L (98-107); CREATININE FOR GFR 0.82 MG/DL (0.70-1.30); GLOMERULAR FILTRATION RATE > 60.0 (>42); GLUCOSE, FASTING 223 MG/DL (74-106); POTASSIUM SERUM 4.7 MMOL/L (3.5-5.1); SODIUM LEVEL 139 MMOL/L (136-145)
== END ==
LOC: M PLALAB 11:39
PROVIDERS: ATTEND Physician Assistant
DX: I35.2 Nonrheumatic aortic (valve) stenosis with insufficiency (principal)

== ENCOUNTER → 2024-04-15 | Outpatient (CLI) | payer MEDICARE ==
[2024-04-15 12:58] LABS: INR 2.46; PROTHROMBIN TIME 25.8 SECONDS (12.5-14.5)
== END ==
LOC: M PLALAB 09:29
PROVIDERS: ATTEND Physician Assistant
DX: Z95.3 Presence of xenogenic heart valve (principal)

== ENCOUNTER → 2024-04-29 | Outpatient (CLI) | payer MEDICARE ==
[2024-04-29 10:18] LABS: HEMATOCRIT 38.5 % (42.0-52.0); HEMOGLOBIN 12.7 g/dl (13.5-17.5); MEAN CORPUSCULAR HEMOGLOBIN 31.3 pg (27.0-33.0); MEAN CORPUSCULAR VOLUME 94.8 fl (80.0-96.0); PLATELET COUNT, AUTOMATED 275 10^3/uL (150-450); RED BLOOD COUNT 4.06 10^6/uL (4.30-6.10); WHITE BLOOD COUNT 7.2 10^3/uL (4.0-10.0)
[2024-04-29 10:36] LABS: INR 2.6; PROTHROMBIN TIME 26.9 SECONDS (12.5-14.5)
[2024-04-29 10:47] LABS: BLOOD UREA NITROGEN 22 MG/DL (9-23); CALCIUM LEVEL 9.5 MG/DL (8.3-10.6); CARBON DIOXIDE LEVEL 29 MMOL/L (20-31); CHLORIDE LEVEL 104 MMOL/L (98-107); CREATININE FOR GFR 1.06 MG/DL (0.70-1.30); GLOMERULAR FILTRATION RATE > 60.0 (>42); GLUCOSE, FASTING 136 MG/DL (74-106); POTASSIUM SERUM 4.8 MMOL/L (3.5-5.1); SODIUM LEVEL 140 MMOL/L (136-145)
== END ==
LOC: M PLALAB 09:00
PROVIDERS: ATTEND Physician Assistant
DX: I35.2 Nonrheumatic aortic (valve) stenosis with insufficiency (principal); I25.10 Atherosclerotic heart disease of native coronary artery without angina pectoris

== ENCOUNTER → 2024-06-24 | Outpatient (CLI) | payer MEDICARE | LOC: M PLAIMG 10:34 | PROVIDERS: ATTEND Physician Assistant | DX: I35.2 Nonrheumatic aortic (valve) stenosis with insufficiency (principal) ==

== ENCOUNTER → 2024-08-19 | Outpatient (CLI) | payer MEDICARE ==
[2024-08-19 08:55] LABS: BASO # 0.1 10^3/uL (0.0-0.2); BASO % 0.8 % (0.0-1.0); EOS # 0.1 10^3/uL (0.0-0.5); EOS % 1.7 % (0.0-3.0); HEMATOCRIT 38.8 % (42.0-52.0); HEMOGLOBIN 13.1 g/dl (13.5-17.5); LYMPH % 25.6 % (24.0-44.0); MEAN CORPUSCULAR HEMOGLOBIN 30.2 pg (27.0-33.0); MEAN CORPUSCULAR HGB CONC 33.8 g/dl (32.0-36.5); MEAN CORPUSCULAR VOLUME 89.4 fl (80.0-96.0); MONO # 0.5 10^3/uL (0.0-0.8); MONO % 6.7 % (2.0-8.0); NEUTROPHILS % 63.9 % (36.0-66.0); PLATELET COUNT, AUTOMATED 225 10^3/uL (150-450); RED BLOOD COUNT 4.34 10^6/uL (4.30-6.10); WHITE BLOOD COUNT 7.8 10^3/uL (4.0-10.0)
[2024-08-19 09:20] LABS: ALBUMIN 3.7 G/DL (3.2-5.2); ALKALINE PHOSPHATASE 80 U/L (40-129); ALT/SGPT 22 U/L (7.0-40); AST/SGOT 9 U/L (<34); BILIRUBIN,TOTAL 0.4 MG/DL (0.3-1.2); BLOOD UREA NITROGEN 21 MG/DL (9-23); CALCIUM LEVEL 9.1 MG/DL (8.3-10.6); CARBON DIOXIDE LEVEL 29 MMOL/L (20-31); CHLORIDE LEVEL 107 MMOL/L (98-107); CHOLESTEROL LEVEL 109 MG/DL (<200); CHOLESTEROL RISK RATIO 2.57 (<5); CREATININE FOR GFR 0.99 MG/DL (0.70-1.30); GLOMERULAR FILTRATION RATE > 60.0 (>42); GLUCOSE, FASTING 155 MG/DL (74-106); HDL CHOLESTEROL 42.3 MG/DL (>40); LDL CHOLESTEROL 47.7 MG/DL (<100); NON-HDL-C 66.7 MG/DL; POTASSIUM SERUM 4.9 MMOL/L (3.5-5.1); PSA SCREENING 2.99 NG/ML (< 4.00); SODIUM LEVEL 140 MMOL/L (136-145); TOTAL PROTEIN 7.6 G/DL (5.7-8.2); TRIGLYCERIDES LEVEL 95 MG/DL (<150)
== END ==
LOC: M LAB 08:09
PROVIDERS: ATTEND Physician Assistant Medical
DX: E78.5 Hyperlipidemia, unspecified (principal); Z12.5 Encounter for screening for malignant neoplasm of prostate
CPT/HCPCS: 36415; 80053; 80061; 83036; 85025; G0103

== ENCOUNTER → 2024-09-25 | Outpatient (CLI) | payer MEDICARE ==
[2024-09-25 14:12] LABS: BLOOD UREA NITROGEN 23 MG/DL (9-23); CALCIUM LEVEL 9.5 MG/DL (8.3-10.6); CARBON DIOXIDE LEVEL 30 MMOL/L (20-31); CHLORIDE LEVEL 104 MMOL/L (98-107); CREATININE FOR GFR 0.91 MG/DL (0.70-1.30); GLOMERULAR FILTRATION RATE > 60.0 (>42); GLUCOSE, FASTING 234 MG/DL (74-106); POTASSIUM SERUM 4.8 MMOL/L (3.5-5.1); SODIUM LEVEL 141 MMOL/L (136-145)
== END ==
LOC: M PLALAB 10:54
PROVIDERS: ATTEND Internal Medicine Cardiovascular Disease
DX: I25.10 Atherosclerotic heart disease of native coronary artery without angina pectoris (principal)

== ENCOUNTER → 2025-01-16 | Outpatient (REF) | payer MEDICARE ==
[2025-01-16 17:43] LABS: ALBUMIN 3.8 G/DL (3.2-5.2); BILIRUBIN,TOTAL 0.5 MG/DL (0.3-1.2); CALCIUM LEVEL 9.2 MG/DL (8.3-10.6); CREATININE FOR GFR 0.87 MG/DL (0.70-1.30); GLOMERULAR FILTRATION RATE 89.4 (>42); POTASSIUM SERUM 4.3 MMOL/L (3.5-5.1); TOTAL PROTEIN 7.2 G/DL (5.7-8.2)
== END ==
LOC: M SFHCCAPE 08:21
PROVIDERS: ATTEND Physician Assistant Medical
DX: E11.9 Type 2 diabetes mellitus without complications (principal)

== ENCOUNTER → 2025-07-22 | Outpatient (REF) | payer MEDICARE ==
[~2025-07-22] MED LIST changes: +LISI40TA10 PO; -LISI40TA4 PO
[2025-07-22 18:07] LABS: BASO # 0.0 10^3/uL (0.0-0.2); BASO % 0.5 % (0.0-1.0); EOS # 0.1 10^3/uL (0.0-0.5); EOS % 1.5 % (0.0-3.0); LYMPH # 1.8 10^3/uL (1.5-5.0); LYMPH % 24.3 % (24.0-44.0); MONO # 0.4 10^3/uL (0.0-0.8); MONO % 5.1 % (2.0-8.0); NEUTROPHILS # 5.1 10^3/uL (1.5-8.5); NEUTROPHILS % 68.2 % (36.0-66.0); PLATELET COUNT, AUTOMATED 261 10^3/uL (150-450)
[2025-07-22 18:21] LABS: ALT/SGPT 31.0 U/L (7.0-40); AST/SGOT 19.0 U/L (<34); CALCIUM LEVEL 9.5 MG/DL (8.3-10.6); CARBON DIOXIDE LEVEL 27.0 MMOL/L (20-31); CHLORIDE LEVEL 102.0 MMOL/L (98-107); CHOLESTEROL LEVEL 108.0 MG/DL (<200); CHOLESTEROL RISK RATIO 2.93 (<5); CREATININE FOR GFR 0.86 MG/DL (0.70-1.30); GLOMERULAR FILTRATION RATE 89.7 (>42); LDL CHOLESTEROL 30.8 MG/DL (<100); NON-HDL-C 71.2 MG/DL; POTASSIUM SERUM 4.5 MMOL/L (3.5-5.1); PSA SCREENING 3.85 NG/ML (< 4.00); SODIUM LEVEL 141.0 MMOL/L (136-145); TOTAL 25(OH) VITAMIN D 24.8 NG/ML (20.0-100.0); TRIGLYCERIDES LEVEL 202.0 MG/DL (<150)
[2025-07-22 18:29] LABS: ESTIMATED AVERAGE GLUCOSE 189.0 MG/DL (60-110)
[2025-07-22 18:30] LABS: CREATININE, URINE 124.6 MG/DL; MALB URINE SIEMENS 12.0 MG/L; MAU/CREAT RATIO 9.6 MCG/MG (0.0-30.0)
== END ==
LOC: M SFHCCAPE 08:26
PROVIDERS: ATTEND Physician Assistant Medical
DX: E11.9 Type 2 diabetes mellitus without complications (principal); E55.9 Vitamin D deficiency, unspecified; E78.5 Hyperlipidemia, unspecified; Z12.5 Encounter for screening for malignant neoplasm of prostate; I25.810 Atherosclerosis of coronary artery bypass graft(s) without angina pectoris
CPT/HCPCS: 80053; 80061; 82043; 82306; 83036; 85025; G0103